=== PATIENT | female | born 1995 | race Caucasian/White ===

== ENCOUNTER 2020-04-07 05:27 | Inpatient (IN) | payer SELFPAY ==
[2020-04-07] VITALS (7 sets, daily range): BP systolic 105–124; BP diastolic 45–67; PULSE 78–91; RESP 16–18; TEMP 35.9–37.1; O2SAT 98–99; BMI 23.6
--- NOTE | 2020-04-07 05:40 | ED.ABDPAIN ---
HPI - Abdominal Pain General Chief Complaint: Abdominal Pain Stated Complaint: LOWER ABD PAIN Time Seen by Provider: 04/07/20 05:40 Source: patient Mode of arrival: ambulatory Limitations: no limitations History of Present Illness MD elicited complaint: abdominal pain Pertinent past history: other (seen at [facility] yesterday and prescribed flagyl for BV, seen for pelvic pain and vaginal bleeding) Onset (ago): day(s) (2 ) Pain Consistency: other (worsening) Location: RUQ, R flank, suprapubic and pelvis Severity: moderate Quality: cramping and stabbing Radiation: none Migration to: no migration Exacerbating factors: movement Relieving factors: nothing Context: recent antibiotic use (flagyl) Associated symptoms: nausea, vomiting and other (vaginal bleeding x 2 weeks) Related Data Allergies Allergy/AdvReac Type Severity Reaction Status Date / Time No Known Allergies Allergy Verified 04/07/20 05:44 Review of Systems Review of Systems Constitutional : No Weight loss, No Fever, No Chills ENT/Mouth : No sore throat, No Rhinorrhea Eyes: No Swelling, No Redness Cardiovascular : No Chest Pain, No SOB, NoEdema Respiratory : No Cough, No Sputum, No Wheezing Gastrointestinal : Positive Nausea, Positive Vomiting, no Diarrhea, positive abdominal Pain, No Hematochezia, No Melena Genitourinary : No Dysuria, No Urinary Frequency, No Hematuria, No Urgency , pos vaginal bleeding Musculoskeletal : No joint pain, No Myalgias, No Joint Swelling Skin : No Skin Lesions, No rash Neuro : No Weakness, No Numbness, No Dizziness, No Headache Psych : No Anxiety/Panic, No Depression Heme/Lymph: No Bruising, No Lymphadenopathy Endocrine : No Polyuria, No Polydipsia All other systems reviewed and are negative. Physical Exam Vital Signs: Vital Signs: Vital Signs Temp Pulse Resp BP Pulse Ox 04/07/20 05:45 98.3 F 91 18 114/67 98 Body Mass Index 23.6 Appearance: Alert. Oriented X3. Anxious, mild acute distress. Eyes: Pupils equal, round and reactive to light. ENT: Pharynx normal. Neck: Normal inspection. Neck supple. CVS: Normal heart rate and rhythm. Pulses normal. Respiratory: No respiratory distress. Breath sounds normal. Abdomen: Soft and R flank and R rib ttp Skin: Skin warm and dry. Normal skin color. Normal skin turgor. Extremities: No lower extremity edema. No calf ttp Neuro: Oriented X 3. No motor deficit. No sensory deficit. Course Course Course Narrative: signed out to Dr. Kruger pending labs, CT scan MDM - Abdominal Pain MDM Narrative Medical decision making narrative: 24 yo female with hx of pelvic pain and bleeding x 2 weeks being treated for BV but reports n/v and R flank and RUQ pain worsening also c/o R rib pain, PERC negative, at this time will need labs, CXR, CT scan for renal colic, IVF and IV morphine for pain, dispo per results and findings Lab Data Result diagrams: 04/07/20 06:00 04/07/20 06:00 Labs: Lab Results 04/07/20 04/07/20 04/07/20 Range/Units 06:00 06:00 06:00 WBC 15.0 H (4.8-10.8) X10*3/uL RBC 4.50 (4.20-5.50) X10*6/uL Hgb 14.1 (12.0-16.0) g/dl Hct 41.9 (37-47) % MCV 93.1 (80-98) fL MCH 31.3 (27.0-33.0) pg MCHC 33.7 (31.0-35.0) g/dl RDW 12.4 (11.0-16.0) % Plt Count 252 (160-400) X10*3/uL MPV 8.5 L (9.4-12.3) fL Immature Gran % (Auto) 0.4 (0.0-0.4) % Neut % (Auto) 73.0 (45-73) % Lymph % (Auto) 12.7 L (20-40) % [place] % (Auto) 6.3 (2-11) % Eos % (Auto) 7.1 H (0-4) % Baso % (Auto) 0.5 (0-2) % Lymph # (Auto) 1.9 (1.2-4.9) X10*3/uL [place] # (Auto) 0.9 (0.1-1.2) X10*3/uL Eos # (Auto) 1.1 H (0.0-0.4) X10*3/uL Baso # (Auto) 0.1 (0.0-0.2) X10*3/uL Abs Immat Gran (auto) 0.06 H (0.00-0.03) X10*3/uL Absolute Neuts (auto) 10.9 H (2.0-8.3) X10*3/uL Absolute Nucleated RBC 0.000 (0.0-0.012) X10*3/uL Nucleated RBC % (auto) 0.0 (0.0-0.2) /100WBC Hold Blue Top SEE NOTE Sodium 139 (135-145) mmol/L Potassium 4.1 (3.3-5.1) mmol/l Chloride 105 (96-108) mmol/L Carbon Dioxide 26 (22-29) mmol/L Anion Gap 12 (12-20) BUN 7 L (9-16) mg/dL Creatinine 0.71 (0.5-1.4) mg/dL Estim Creat Clear Calc 107.3 Estimated GFR > 60 Random Glucose 88 (60-115) mg/dL Calcium 8.5 (8.4-10.2) mg/dL Urine Color Urine Appearance Urine pH (5.0-8.0) Ur Specific [place] (1.005-1.025) Urine Protein (NEG-TRACE) MG/DL Urine Glucose (UA) (NEG) MG/DL Urine Ketones (NEG) MG/DL Urine Blood (NEG) Urine Nitrite (NEG) Ur Leukocyte Esterase (NEG) Urine RBC (0) /HPF Urine WBC (0-4) /HPF Ur Squamous Epith Cells /LPF Urine Bacteria /LPF Urine Mucus /LPF Urine Yeast /HPF Urine Test (NEGATIVE) 04/07/20 Range/Units 06:00 WBC (4.8-10.8) X10*3/uL RBC (4.20-5.50) X10*6/uL Hgb (12.0-16.0) g/dl Hct (37-47) % MCV (80-98) fL MCH (27.0-33.0) pg MCHC (31.0-35.0) g/dl RDW (11.0-16.0) % Plt Count (160-400) X10*3/uL MPV (9.4-12.3) fL Immature Gran % (Auto) (0.0-0.4) % Neut % (Auto) (45-73) % Lymph % (Auto) (20-40) % [place] % (Auto) (2-11) % Eos % (Auto) (0-4) % Baso % (Auto) (0-2) % Lymph # (Auto) (1.2-4.9) X10*3/uL [place] # (Auto) (0.1-1.2) X10*3/uL Eos # (Auto) (0.0-0.4) X10*3/uL Baso # (Auto) (0.0-0.2) X10*3/uL Abs Immat Gran (auto) (0.00-0.03) X10*3/uL Absolute Neuts (auto) (2.0-8.3) X10*3/uL Absolute Nucleated RBC (0.0-0.012) X10*3/uL Nucleated RBC % (auto) (0.0-0.2) /100WBC Hold Blue Top Sodium (135-145) mmol/L Potassium (3.3-5.1) mmol/l Chloride (96-108) mmol/L Carbon Dioxide (22-29) mmol/L Anion Gap (12-20) BUN (9-16) mg/dL Creatinine (0.5-1.4) mg/dL Estim Creat Clear Calc Estimated GFR Random Glucose (60-115) mg/dL Calcium (8.4-10.2) mg/dL Urine Color YELLOW Urine Appearance CLEAR Urine pH 7.0 (5.0-8.0) Ur Specific [place] 1.020 (1.005-1.025) Urine Protein NEG (NEG-TRACE) MG/DL Urine Glucose (UA) NEG (NEG) MG/DL Urine Ketones NEG (NEG) MG/DL Urine Blood 2+ H (NEG) Urine Nitrite NEG (NEG) Ur Leukocyte Esterase NEG (NEG) Urine RBC 5-9 H (0) /HPF Urine WBC 0 (0-4) /HPF Ur Squamous Epith Cells 1+ /LPF Urine Bacteria NONE /LPF Urine Mucus TRACE /LPF Urine Yeast TRACE /HPF Urine Test NEGATIVE (NEGATIVE) Discharge Plan Discharge Clinical Impression: Abdominal pain PMFSH Past Medical History Attestation statement: The following information was validated with the patient. Medical History No known health problems Social History Social History (Updated 04/07/20 @ 05:58 by Gayla Ortez DO) Smoking Status: Current every day smoker Substance Use Type: Former Substance User Advance Directives: No Advance Directives Information Provided: No
--- NOTE | 2020-04-07 05:50 | CT_ITS ---
EXAMINATION: CT ABDOMEN AND PELVIS WITH CONTRAST CLINICAL INFORMATION: Right-sided abdominal pain. COMPARISON: None TECHNIQUE: Multidetector volumetric images were obtained from the superior aspect of the liver through the pubic symphysis following administration 85 mL ofOmnipaque 350 intravenous contrast. Sagittal and coronal reformatted images were obtained on the technologist's workstation. Oral contrast: No This CT examination was performed using dose optimization techniques as appropriate, variously including the following: *Automated exposure control *Adjustment of mA and/or kV according to patient size (this includes techniques or standardized protocols for targeted exams where dose is matched to indication/reason for exam; i.e. extremities or head) *Use of iterative reconstruction technique DLP: 471.36 mGy-cm FINDINGS: LUNG BASES: Solitary sub-5 mm round-shaped subpleural noncalcified lung nodule is noted within the right lower lobe anterolaterally (image #61 series 4). LIVER, GALLBLADDER, AND BILIARY TREE: The liver is normal in size, shape, and attenuation. No focal hepatic lesion or biliary ductal dilatation is present. The gallbladder is unremarkable with no evidence of radiopaque gallstones, gallbladder wall thickening, or obvious pericholecystic inflammatory changes. PANCREAS: Unremarkable. SPLEEN: Unremarkable. ADRENAL GLANDS: Unremarkable. KIDNEYS AND URETERS: The kidneys are normal in size, shape, and attenuation. No hydronephrosis, hydroureter, or calculi seen. No perinephric stranding. BLADDER: Unremarkable. GASTROINTESTINAL TRACT: The small and large bowel are unremarkable. The appendix is visualized at right lower quadrant of the abdomen, appear normal in caliber. However, subtle periappendiceal stranding is present. Note is also made of an ellipsoidal hypodense fluid containing structure seen abutting the tip of the appendix (image #93 series #6 and image #52 series 5, and image #521 series 4), measures approximately 3.2 x 2.0 cm at its maximum anteroposterior by transverse dimension, within the superior part of the right hemipelvis superior, posterior and lateral aspect of the body of the uterus (see the marie images). Given its location, the findings may represent pelvic inflammatory disease with tube ovarian abscess and reactive changes in the appendix. ABDOMINAL WALL: No significant hernia is appreciated. LYMPH NODES: Normal. VASCULAR: Unremarkable. PELVIC VISCERA: Bilateral adnexal hypodensities are present. May represent enlarged ovaries containing follicles. Note is also made of a fluid containing structure within the right hemipelvis as already described, may represent changes secondary to pelvic inflammatory disease. Alternatively, may also represent fluid containing small bowel loop. No evidence of any free air or free fluid. Hypodense endometrial, may represent presence of endometrial fluid. OSSEOUS STRUCTURES: Likely bone island within the left supra-acetabular region. CT/CT abdomen pelvis w con IMPRESSION: 1. Solitary sub-5 mm subpleural noncalcified lung nodule is noted within the right lower lobe anterolaterally. 2. The appendix is visualized at right lower quadrant, appear normal in caliber, without evidence of any appendicolith. However, subtle periappendiceal inflammatory stranding is present.. The tip of the appendix, there is a 3.2 x 2.0 cm fluid containing structure identified extending into the right hemipelvis along along the right lateral, posterior superior aspect of the body of the uterus. Bilateral adnexal hypodensities are also noted. The findings may represent changes secondary to pelvic inflammatory disease with tubo-ovarian abscess and reactive changes around the appendix. Alternatively, the fluid containing structure may also represent fluid containing small bowel loop. 3. Note is made of hypodensity within the endometrium, may represent nonspecific endometrial fluid. This critical result was discussed with Dr. Kruger at 7:43 AM on 04/07/2020 and it was ascertained that the content and urgency of the report was understood at the time of direct communication. Discussion was made regarding the need for a follow-up pelvic ultrasound and for possible follow-up CT scan following opacification of the small bowel loops with oral contrast if the ultrasound is not conclusive.
--- NOTE | 2020-04-07 05:51 | XR_ITS ---
EXAMINATION: XR CHEST CLINICAL INFORMATION: Right-sided pain COMPARISON: None TECHNIQUE: Frontal view of the chest was obtained. FINDINGS: The lungs are well expanded. There is no focal consolidation, edema, or effusion. No pneumothorax. The cardiomediastinal silhouette is within normal limits. No acute osseous abnormality. XR/XR chest 1V IMPRESSION: Clear lungs.
[2020-04-07 06:08] LABS: Basophils Absolute Auto 0.1 X10*3/uL (0.0-0.2); Basophils Percent Auto 0.5 % (0-2); Eosinophils Absolute Auto 1.1 X10*3/uL (0.0-0.4); Eosinophils Percent Auto 7.1 % (0-4); Hematocrit 41.9 % (37-47); Hemoglobin 14.1 g/dl (12.0-16.0); Imm Gran Abs Auto 0.06 X10*3/uL (0.00-0.03); Imm Gran Pct Auto 0.4 % (0.0-0.4); Lymphocytes Absolute Auto 1.9 X10*3/uL (1.2-4.9); Lymphocytes Percent Auto 12.7 % (20-40); MANUAL DIFF FLAG NO; Mean Corpuscular HGB Conc 33.7 g/dl (31.0-35.0); Mean Corpuscular Hemoglobin 31.3 pg (27.0-33.0); Mean Corpuscular Volume 93.1 fL (80-98); Mean Platelet Volume 8.5 fL (9.4-12.3); Monocytes Absolute Auto 0.9 X10*3/uL (0.1-1.2); Monocytes Percent Auto 6.3 % (2-11); Neutrophils Absolute Auto 10.9 X10*3/uL (2.0-8.3); Platelet Count 252 X10*3/uL (160-400); Red Cell Distribution Width 12.4 % (11.0-16.0)
[2020-04-07] MEDS: 0.9 % Sodium Chloride 1,000 ML 999 ML IVCONT (06:12)
[2020-04-07] MEDS: Morphine Sulfate 4 MG/ML CARTRIDGE IVPUSH (06:12)
[2020-04-07] MEDS: ondansetron HCL 4 MG/2 ML VIAL IVPUSH (06:12)
[2020-04-07 06:18] LABS: Glucose Urine UA NEG (NEG); Leukocyte Esterase Urine NEG (NEG); Nitrite Urine NEG (NEG); Urine Blood 2+ (NEG); Urine Ketones NEG (NEG); Urine Protein NEG (NEG-TRACE)
[2020-04-07 06:23] LABS: Appearance Urine CLEAR; Color Urine YELLOW
[2020-04-07 06:38] LABS: Mucus Urine TRACE /LPF; Squamous Epithelial Cell Urine 1+ /LPF; WBC Urine 0 /HPF (0-4)
[2020-04-07 06:39] LABS: UPreg QC Valid YES; Urine Pregnancy NEGATIVE (NEGATIVE)
[2020-04-07 06:43] LABS: Anion Gap 12 (12-20); Blood Urea Nitrogen 7 mg/dL (9-16); Calcium 8.5 mg/dL (8.4-10.2); Carbon Dioxide 26 mmol/L (22-29); Chloride 105 mmol/L (96-108); Creatinine Clr Calc Pharmacy 107.3; Estimated Glomerular Filt Rate > 60; Glucose Random 88 mg/dL (60-115); Potassium 4.1 mmol/l (3.3-5.1); Sodium 139 mmol/L (135-145)
[2020-04-07 06:49] LABS: Alanine Aminotransferase 17 U/L (0-31); Albumin Level 3.6 g/dL (3.5-5.0); Alkaline Phosphatase 75 U/L (39-117); Aspartate Amino Transferase 19 U/L (5-31); Bilirubin Direct 0.2 mg/dL (0.0-0.5); Bilirubin Total 0.6 mg/dL (0.0-1.0); Lipase 35 U/L (8-78)
--- NOTE | 2020-04-07 07:16 | PC.NURSE ---
report taken from Conchis HERMOSILLO. pt resting on stretcher upon assessment. states pain med has taken away RLQ pain. vitals updated. pt taken for CT scan. waiting results.
[2020-04-07] MEDS: iohexoL 350 MG/ML 100 ML INFUS..BTL IV (07:26)
--- NOTE | 2020-04-07 07:53 | US_ITS ---
EXAMINATION: ULTRASOUND PELVIS COMPLETE. ULTRASOUND APPENDIX. CLINICAL INFORMATION: Right abdominal and pelvic pain. COMPARISON: None TECHNIQUE: Limited imaging through the right lower quadrant was performed to evaluate the appendix. Transabdominal and transvaginal ultrasound of the pelvis is performed. FINDINGS: APPENDIX: The appendix is not visualized. There is no mass or free fluid visualized in the right lower quadrant or Morison's pouch. Recent CT revealed normal appendix. PELVIS: The uterus is anteverted and measures 8.9 cm in length length, 4.6 cm in AP and 5.0 cm in transverse dimension. The uterus is homogeneous in echotexture. The endometrial thickness measures 1.2 cm. The right ovary measures 3.5 x 1.9 x 2.2 cm and volume 7.7 mL. It appears unremarkable. Left ovary measures 3.6 x 2.8 x 2.0 cm and volume 15.8 mL. There is a corpus luteal cyst 2.3 x 1.8 x 2.8 cm. There is no free fluid in the cul-de-sac. US/US pelvic complete IMPRESSION: Appendix is not visualized. No mass or free fluid is seen in the right lower quadrant. There is no tenderness by ultrasound probe. Corpus luteal cyst measuring 2.8 cm in the left ovary. Unremarkable right ovary and uterus.
--- NOTE | 2020-04-07 07:53 | US_ITS ---
EXAMINATION: ULTRASOUND PELVIS COMPLETE. ULTRASOUND APPENDIX. CLINICAL INFORMATION: Right abdominal and pelvic pain. COMPARISON: None TECHNIQUE: Limited imaging through the right lower quadrant was performed to evaluate the appendix. Transabdominal and transvaginal ultrasound of the pelvis is performed. FINDINGS: APPENDIX: The appendix is not visualized. There is no mass or free fluid visualized in the right lower quadrant or Morison's pouch. Recent CT revealed normal appendix. PELVIS: The uterus is anteverted and measures 8.9 cm in length length, 4.6 cm in AP and 5.0 cm in transverse dimension. The uterus is homogeneous in echotexture. The endometrial thickness measures 1.2 cm. The right ovary measures 3.5 x 1.9 x 2.2 cm and volume 7.7 mL. It appears unremarkable. Left ovary measures 3.6 x 2.8 x 2.0 cm and volume 15.8 mL. There is a corpus luteal cyst 2.3 x 1.8 x 2.8 cm. There is no free fluid in the cul-de-sac. US/US appendix IMPRESSION: Appendix is not visualized. No mass or free fluid is seen in the right lower quadrant. There is no tenderness by ultrasound probe. Corpus luteal cyst measuring 2.8 cm in the left ovary. Unremarkable right ovary and uterus.
--- NOTE | 2020-04-07 08:05 | ED.ABDPAIN ---
HPI - Abdominal Pain General Chief Complaint: Abdominal Pain Stated Complaint: LOWER ABD PAIN Time Seen by Provider: 04/07/20 05:40 Source: patient Mode of arrival: ambulatory Limitations: no limitations History of Present Illness HPI narrative: please see Dr. Ortez's note for initial assessment and H&P MD elicited complaint: abdominal pain Severity: moderate Quality: cramping and stabbing Migration to: no migration Exacerbating factors: movement Relieving factors: nothing Context: recent antibiotic use (flagyl) Associated symptoms: nausea, vomiting and other (vaginal bleeding x 2 weeks) Related Data Allergies Allergy/AdvReac Type Severity Reaction Status Date / Time No Known Allergies Allergy Verified 04/07/20 05:44 Physical Exam Vital Signs: Vital Signs: Vital Signs Temp Pulse Resp BP Pulse Ox 04/07/20 14:08 98.2 F 79 18 105/45 L 98 04/07/20 10:15 98.7 F 89 18 117/67 99 04/07/20 06:53 98.1 F 84 16 106/54 L 99 04/07/20 05:45 98.3 F 91 18 114/67 98 Body Mass Index 23.6 Course Course Course Narrative: I received sign-out from Dr. Ortez. I spoke to Dr. Caraballo from [facility], Is unlikely that the patient has appendicitis, however he cannot be ruled out completely. Patient may have a 2 ovarian abscess versus appendicitis. The next step is to follow-up with an ultrasound at this time. I discussed the above-mentioned with the patient, agrees to plan. Patient states she cannot wait for the ultrasound results, states she needs to go to her appointment for a COVID test. states she really needs it to return to work. I offered the patient out rapid COVID test here, while we wait for her ultrasound results to return. Patient accepted to be tested here for COVID-19 Dr. Roe came to evaluate the patient, at this time, it remains unclear if the patient's abdominal pain is secondary to appendicitis versus to ovarian abscess. Dr. Roe requesting surgery consult as well which is pending. Dr. Roe will be admitting the patient. Dr. Eduardo from surgery came to evaluate the patient, at this time, appendicitis is not suspected. MDM - Abdominal Pain Lab Data Result diagrams: 04/07/20 06:00 04/07/20 06:00 Labs: Lab Results 04/07/20 04/07/20 04/07/20 Range/Units 06:00 06:00 06:00 WBC 15.0 H (4.8-10.8) X10*3/uL RBC 4.50 (4.20-5.50) X10*6/uL Hgb 14.1 (12.0-16.0) g/dl Hct 41.9 (37-47) % MCV 93.1 (80-98) fL MCH 31.3 (27.0-33.0) pg MCHC 33.7 (31.0-35.0) g/dl RDW 12.4 (11.0-16.0) % Plt Count 252 (160-400) X10*3/uL MPV 8.5 L (9.4-12.3) fL Immature Gran % (Auto) 0.4 (0.0-0.4) % Neut % (Auto) 73.0 (45-73) % Lymph % (Auto) 12.7 L (20-40) % [place] % (Auto) 6.3 (2-11) % Eos % (Auto) 7.1 H (0-4) % Baso % (Auto) 0.5 (0-2) % Lymph # (Auto) 1.9 (1.2-4.9) X10*3/uL [place] # (Auto) 0.9 (0.1-1.2) X10*3/uL Eos # (Auto) 1.1 H (0.0-0.4) X10*3/uL Baso # (Auto) 0.1 (0.0-0.2) X10*3/uL Abs Immat Gran (auto) 0.06 H (0.00-0.03) X10*3/uL Absolute Neuts (auto) 10.9 H (2.0-8.3) X10*3/uL Absolute Nucleated RBC 0.000 (0.0-0.012) X10*3/uL Nucleated RBC % (auto) 0.0 (0.0-0.2) /100WBC Hold Blue Top SEE NOTE Sodium 139 (135-145) mmol/L Potassium 4.1 (3.3-5.1) mmol/l Chloride 105 (96-108) mmol/L Carbon Dioxide 26 (22-29) mmol/L Anion Gap 12 (12-20) BUN 7 L (9-16) mg/dL Creatinine 0.71 (0.5-1.4) mg/dL Estim Creat Clear Calc 107.3 Estimated GFR > 60 Random Glucose 88 (60-115) mg/dL Calcium 8.5 (8.4-10.2) mg/dL Magnesium (1.6-2.6) mg/dL Total Bilirubin (0.0-1.0) mg/dL Direct Bilirubin (0.0-0.5) mg/dL AST (5-31) U/L ALT (0-31) U/L Alkaline Phosphatase (39-117) U/L Total Protein (6.5-8.0) g/dL Albumin (3.5-5.0) g/dL Lipase (8-78) U/L Urine Color Urine Appearance Urine pH (5.0-8.0) Ur Specific [place] (1.005-1.025) Urine Protein (NEG-TRACE) MG/DL Urine Glucose (UA) (NEG) MG/DL Urine Ketones (NEG) MG/DL Urine Blood (NEG) Urine Nitrite (NEG) Ur Leukocyte Esterase (NEG) Urine RBC (0) /HPF Urine WBC (0-4) /HPF Ur Squamous Epith Cells /LPF Urine Bacteria /LPF Urine Mucus /LPF Urine Yeast /HPF Urine Test (NEGATIVE) Coronavirus (PCR) (Negative) 04/07/20 04/07/20 04/07/20 Range/Units 06:00 06:00 12:04 WBC (4.8-10.8) X10*3/uL RBC (4.20-5.50) X10*6/uL Hgb (12.0-16.0) g/dl Hct (37-47) % MCV (80-98) fL MCH (27.0-33.0) pg MCHC (31.0-35.0) g/dl RDW (11.0-16.0) % Plt Count (160-400) X10*3/uL MPV (9.4-12.3) fL Immature Gran % (Auto) (0.0-0.4) % Neut % (Auto) (45-73) % Lymph % (Auto) (20-40) % [place] % (Auto) (2-11) % Eos % (Auto) (0-4) % Baso % (Auto) (0-2) % Lymph # (Auto) (1.2-4.9) X10*3/uL [place] # (Auto) (0.1-1.2) X10*3/uL Eos # (Auto) (0.0-0.4) X10*3/uL Baso # (Auto) (0.0-0.2) X10*3/uL Abs Immat Gran (auto) (0.00-0.03) X10*3/uL Absolute Neuts (auto) (2.0-8.3) X10*3/uL Absolute Nucleated RBC (0.0-0.012) X10*3/uL Nucleated RBC % (auto) (0.0-0.2) /100WBC Hold Blue Top Sodium (135-145) mmol/L Potassium (3.3-5.1) mmol/l Chloride (96-108) mmol/L Carbon Dioxide (22-29) mmol/L Anion Gap (12-20) BUN (9-16) mg/dL Creatinine (0.5-1.4) mg/dL Estim Creat Clear Calc Estimated GFR Random Glucose (60-115) mg/dL Calcium (8.4-10.2) mg/dL Magnesium 2.0 (1.6-2.6) mg/dL Total Bilirubin 0.6 (0.0-1.0) mg/dL Direct Bilirubin 0.2 (0.0-0.5) mg/dL AST 19 (5-31) U/L ALT 17 (0-31) U/L Alkaline Phosphatase 75 (39-117) U/L Total Protein 6.0 L (6.5-8.0) g/dL Albumin 3.6 (3.5-5.0) g/dL Lipase 35 (8-78) U/L Urine Color YELLOW Urine Appearance CLEAR Urine pH 7.0 (5.0-8.0) Ur Specific [place] 1.020 (1.005-1.025) Urine Protein NEG (NEG-TRACE) MG/DL Urine Glucose (UA) NEG (NEG) MG/DL Urine Ketones NEG (NEG) MG/DL Urine Blood 2+ H (NEG) Urine Nitrite NEG (NEG) Ur Leukocyte Esterase NEG (NEG) Urine RBC 5-9 H (0) /HPF Urine WBC 0 (0-4) /HPF Ur Squamous Epith Cells 1+ /LPF Urine Bacteria NONE /LPF Urine Mucus TRACE /LPF Urine Yeast TRACE /HPF Urine Test NEGATIVE (NEGATIVE) Coronavirus (PCR) NEGATIVE (Negative) Imaging Data CT scan - abdomen: Radiologist's impression: 1. Solitary sub-5 mm subpleural noncalcified lung nodule is noted within the right lower lobe anterolaterally. 2. The appendix is visualized at right lower quadrant, appear normal in caliber, without evidence of any appendicolith. However, subtle periappendiceal inflammatory stranding is present.. The tip of the appendix, there is a 3.2 x 2.0 cm fluid containing structure identified extending into the right hemipelvis along along the right lateral, posterior superior aspect of the body of the uterus. Bilateral adnexal hypodensities are also noted. The findings may represent changes secondary to pelvic inflammatory disease with tubo-ovarian abscess and reactive changes around the appendix. Alternatively, the fluid containing structure may also represent fluid containing small bowel loop. 3. Note is made of hypodensity within the endometrium, may represent nonspecific endometrial fluid. Discharge Plan Discharge Clinical Impression: TOA (tubo-ovarian abscess) Patient Disposition: Admitted As [facility] Past Medical History Medical History No known health problems Social History Social History Smoking Status: Current every day smoker Use of substances other than those prescribed or required for medical reasons: No Substance Use Type: Former Substance User Advance Directives: No Advance Directives Information Provided: No
--- NOTE | 2020-04-07 08:12 | US_ITS ---
EXAMINATION: ULTRASOUND PELVIS COMPLETE. ULTRASOUND APPENDIX. CLINICAL INFORMATION: Right abdominal and pelvic pain. COMPARISON: None TECHNIQUE: Limited imaging through the right lower quadrant was performed to evaluate the appendix. Transabdominal and transvaginal ultrasound of the pelvis is performed. FINDINGS: APPENDIX: The appendix is not visualized. There is no mass or free fluid visualized in the right lower quadrant or Morison's pouch. Recent CT revealed normal appendix. PELVIS: The uterus is anteverted and measures 8.9 cm in length length, 4.6 cm in AP and 5.0 cm in transverse dimension. The uterus is homogeneous in echotexture. The endometrial thickness measures 1.2 cm. The right ovary measures 3.5 x 1.9 x 2.2 cm and volume 7.7 mL. It appears unremarkable. Left ovary measures 3.6 x 2.8 x 2.0 cm and volume 15.8 mL. There is a corpus luteal cyst 2.3 x 1.8 x 2.8 cm. There is no free fluid in the cul-de-sac. US/US transvaginal IMPRESSION: Appendix is not visualized. No mass or free fluid is seen in the right lower quadrant. There is no tenderness by ultrasound probe. Corpus luteal cyst measuring 2.8 cm in the left ovary. Unremarkable right ovary and uterus.
[2020-04-07] MEDS: Ketorolac Tromethamine 30 MG/ML VIAL IVPUSH ×2 (10:27→20:22)
[2020-04-07] MEDS: Piperacillin Sodium/Tazobactam 3.375 GM in 0.9 % Sodium Chloride 50 ML IV (11:51)
--- NOTE | 2020-04-07 12:31 | PC.NURSE ---
md in and spoke with pt, advised pt that she would need pelvic exam. pt appeared frustrated as she had one yesterday, pt given option to not have exam but stated no I need to know whats wrong with me and was agreeabl to have exam done by . and this rn at bedside for exam. pt crying during exam and after. offered to patient if there was anything this RN could do for her after exam, pt crying and replied No .
[2020-04-07 13:11] LABS: SARS COV2 PCR INHOUSE NEGATIVE (Negative)
--- NOTE | 2020-04-07 14:24 | ED_ITS ---
HPI - Abdominal Pain General Chief Complaint: Abdominal Pain Stated Complaint: LOWER ABD PAIN Time Seen by Provider: 04/07/20 05:40 Source: patient Mode of arrival: ambulatory Limitations: no limitations History of Present Illness HPI narrative: The patient the presented emergency room early this morning complaining of the lower abdominal pain more on the right radiating to the right upper quadrant. Patient has been having pain last 3 days, She went yesterday to emergency room at [facility], was diagnosed with bacterial vaginosis and was prescribed metronidazole. But the patient woke up this morning with exacerbation of her right lower quadrant pain radiating to the right upper quadrant. so she the decided to come in for evaluation. The pain is associated with nausea, vomiting, vaginal bleeding and discharge, no fever or chills. The patient has been having her menses over the last 2 weeks and she unprotected intercourse. MD elicited complaint: abdominal pain Severity: moderate Quality: cramping and stabbing Migration to: no migration Exacerbating factors: movement Relieving factors: nothing Context: recent antibiotic use (flagyl) Associated symptoms: nausea, vomiting and other (vaginal bleeding x 2 weeks) Related Data Patient : No Allergies Allergy/AdvReac Type Severity Reaction Status Date / Time No Known Allergies Allergy Verified 04/07/20 05:44 Review of Systems Review of Systems Yes all other systems are reviewed and are negative Cardiovascular: Reports as per HPI, Reports no additional cardiovascular complaints, Denies chest pain, Denies chest pain with activity, Denies dyspnea and Denies dyspnea on exertion Respiratory: Reports as per HPI, Reports no additional respiratory complaints, Denies cough, Denies pain on inspiration, Denies pain with cough, Denies dyspnea, Denies dyspnea on exertion and Denies wheezing Gastrointestinal: Reports as per HPI, Reports no additional gastrointestinal complaints, Denies abdominal pain, Denies change in bowel habits, Denies change in stool character, Denies early satiety, Denies dyspepsia, Denies heartburn, Denies nausea and Denies vomiting Genitourinary: Reports as per HPI, Denies hematuria and Denies dysuria Allergic/Immunologic: Denies wheezing Physical Exam Vital Signs: Vital Signs: Vital Signs Temp Pulse Resp BP Pulse Ox 04/07/20 14:08 98.2 F 79 18 105/45 L 98 04/07/20 10:15 98.7 F 89 18 117/67 99 04/07/20 06:53 98.1 F 84 16 106/54 L 99 04/07/20 05:45 98.3 F 91 18 114/67 98 Body Mass Index 23.6 Const: General: cooperative, healthy appearing and comfortable Chest: Chest palpation & inspection: normal inspection of the chest and normal palpation of entire chest wall Breast/axilla inspection: normal inspection of the breasts and normal inspection of the axillae Breast/axilla palpation: normal palpation of the breasts, normal palpation of the axillae and no axillary lymphadenopathy Resp: Effort & Inspection: normal respiratory effort Auscultation: clear to auscultation bilaterally Percussion: percussion normal Cardio: Palpation: normal PMI Rate: regular rate Rhythm: regular rhythm Heart sounds: no murmurs and no rubs Peripheral pulses: Peripheral pulses 2+ throughout GI: Inspection: Yes normal to inspection Palpation (GI): Soft to palpation, Tenderness to palpation present (GI), no guarding, not rigid and No hepatosplenomegaly present Percussion: Yes normal to percussion Auscultation: normal bowel sounds Rectal Exam - Female: deferred : Other: The patient declined pelvic exam stating that she just had a pelvic exam by the emergency room physician. Explained to the patient the importance of a pelvic exam as part of evaluation especially in a setting of TOA the patient still insisted not having the pelvic exam after verbalizing understand. All questions answered. Speculum Exam - Vagina: erythematous MDM - Abdominal Pain Lab Data Result diagrams: 04/07/20 06:00 04/07/20 06:00 Labs: Lab Results 04/07/20 04/07/20 04/07/20 Range/Units 06:00 06:00 06:00 WBC 15.0 H (4.8-10.8) X10*3/uL RBC 4.50 (4.20-5.50) X10*6/uL Hgb 14.1 (12.0-16.0) g/dl Hct 41.9 (37-47) % MCV 93.1 (80-98) fL MCH 31.3 (27.0-33.0) pg MCHC 33.7 (31.0-35.0) g/dl RDW 12.4 (11.0-16.0) % Plt Count 252 (160-400) X10*3/uL MPV 8.5 L (9.4-12.3) fL Immature Gran % (Auto) 0.4 (0.0-0.4) % Neut % (Auto) 73.0 (45-73) % Lymph % (Auto) 12.7 L (20-40) % [place] % (Auto) 6.3 (2-11) % Eos % (Auto) 7.1 H (0-4) % Baso % (Auto) 0.5 (0-2) % Lymph # (Auto) 1.9 (1.2-4.9) X10*3/uL [place] # (Auto) 0.9 (0.1-1.2) X10*3/uL Eos # (Auto) 1.1 H (0.0-0.4) X10*3/uL Baso # (Auto) 0.1 (0.0-0.2) X10*3/uL Abs Immat Gran (auto) 0.06 H (0.00-0.03) X10*3/uL Absolute Neuts (auto) 10.9 H (2.0-8.3) X10*3/uL Absolute Nucleated RBC 0.000 (0.0-0.012) X10*3/uL Nucleated RBC % (auto) 0.0 (0.0-0.2) /100WBC Hold Blue Top SEE NOTE Sodium 139 (135-145) mmol/L Potassium 4.1 (3.3-5.1) mmol/l Chloride 105 (96-108) mmol/L Carbon Dioxide 26 (22-29) mmol/L Anion Gap 12 (12-20) BUN 7 L (9-16) mg/dL Creatinine 0.71 (0.5-1.4) mg/dL Estim Creat Clear Calc 107.3 Estimated GFR > 60 Random Glucose 88 (60-115) mg/dL Calcium 8.5 (8.4-10.2) mg/dL Magnesium (1.6-2.6) mg/dL Total Bilirubin (0.0-1.0) mg/dL Direct Bilirubin (0.0-0.5) mg/dL AST (5-31) U/L ALT (0-31) U/L Alkaline Phosphatase (39-117) U/L Total Protein (6.5-8.0) g/dL Albumin (3.5-5.0) g/dL Lipase (8-78) U/L Urine Color Urine Appearance Urine pH (5.0-8.0) Ur Specific [place] (1.005-1.025) Urine Protein (NEG-TRACE) MG/DL Urine Glucose (UA) (NEG) MG/DL Urine Ketones (NEG) MG/DL Urine Blood (NEG) Urine Nitrite (NEG) Ur Leukocyte Esterase (NEG) Urine RBC (0) /HPF Urine WBC (0-4) /HPF Ur Squamous Epith Cells /LPF Urine Bacteria /LPF Urine Mucus /LPF Urine Yeast /HPF Urine Test (NEGATIVE) Coronavirus (PCR) (Negative) 04/07/20 04/07/20 04/07/20 Range/Units 06:00 06:00 12:04 WBC (4.8-10.8) X10*3/uL RBC (4.20-5.50) X10*6/uL Hgb (12.0-16.0) g/dl Hct (37-47) % MCV (80-98) fL MCH (27.0-33.0) pg MCHC (31.0-35.0) g/dl RDW (11.0-16.0) % Plt Count (160-400) X10*3/uL MPV (9.4-12.3) fL Immature Gran % (Auto) (0.0-0.4) % Neut % (Auto) (45-73) % Lymph % (Auto) (20-40) % [place] % (Auto) (2-11) % Eos % (Auto) (0-4) % Baso % (Auto) (0-2) % Lymph # (Auto) (1.2-4.9) X10*3/uL [place] # (Auto) (0.1-1.2) X10*3/uL Eos # (Auto) (0.0-0.4) X10*3/uL Baso # (Auto) (0.0-0.2) X10*3/uL Abs Immat Gran (auto) (0.00-0.03) X10*3/uL Absolute Neuts (auto) (2.0-8.3) X10*3/uL Absolute Nucleated RBC (0.0-0.012) X10*3/uL Nucleated RBC % (auto) (0.0-0.2) /100WBC Hold Blue Top Sodium (135-145) mmol/L Potassium (3.3-5.1) mmol/l Chloride (96-108) mmol/L Carbon Dioxide (22-29) mmol/L Anion Gap (12-20) BUN (9-16) mg/dL Creatinine (0.5-1.4) mg/dL Estim Creat Clear Calc Estimated GFR Random Glucose (60-115) mg/dL Calcium (8.4-10.2) mg/dL Magnesium 2.0 (1.6-2.6) mg/dL Total Bilirubin 0.6 (0.0-1.0) mg/dL Direct Bilirubin 0.2 (0.0-0.5) mg/dL AST 19 (5-31) U/L ALT 17 (0-31) U/L Alkaline Phosphatase 75 (39-117) U/L Total Protein 6.0 L (6.5-8.0) g/dL Albumin 3.6 (3.5-5.0) g/dL Lipase 35 (8-78) U/L Urine Color YELLOW Urine Appearance CLEAR Urine pH 7.0 (5.0-8.0) Ur Specific [place] 1.020 (1.005-1.025) Urine Protein NEG (NEG-TRACE) MG/DL Urine Glucose (UA) NEG (NEG) MG/DL Urine Ketones NEG (NEG) MG/DL Urine Blood 2+ H (NEG) Urine Nitrite NEG (NEG) Ur Leukocyte Esterase NEG (NEG) Urine RBC 5-9 H (0) /HPF Urine WBC 0 (0-4) /HPF Ur Squamous Epith Cells 1+ /LPF Urine Bacteria NONE /LPF Urine Mucus TRACE /LPF Urine Yeast TRACE /HPF Urine Test NEGATIVE (NEGATIVE) Coronavirus (PCR) NEGATIVE (Negative) Discharge Plan Discharge Clinical Impression: TOA (tubo-ovarian abscess) Patient Disposition: Admitted As Inpatient REPLACED BY [facility] Past Medical History Medical History No known health problems Social History Social History Smoking Status: Current every day smoker Use of substances other than those prescribed or required for medical reasons: No Substance Use Type: Former Substance User Advance Directives: No Advance Directives Information Provided: No
--- NOTE | 2020-04-07 14:49 | P.HPOB_ITS ---
RETAIL BUSINESS MANAGER - H&P: HPI History of Present Illness Narrative: LENIN ARRIAGA is a 24 year old female who presented to the emergency room early this morning complaining of the lower abdominal pain more on the right radiating to the right upper quadrant. Patient has been having pain last 3 days, She went yesterday to emergency room at [facility], was diagnosed with bacterial vaginosis and was prescribed metronidazole. But the patient woke up this morning with exacerbation of her right lower quadrant p ain radiating to the right upper quadrant. so she the decided to come in for evaluation. The pain is associated with nausea, vomiting, vaginal bleeding and discharge, no fever or chills. The patient has been having her menses over the last 2 weeks and she unprotected intercourse. 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 - Review of Systems Review of Systems ROS Unobtainable: All systems reviewed & are unremarkable except as noted in HPI and below OB PMFSH Past Medical History Medical History H/O: substance abuse No known health problems TOA (tubo-ovarian abscess) Social History Social History Household Members: None Housing: Apartment Alcohol intake: never Smoking Status: Current every day smoker Tobacco Type: E-Cigarette Use of substances other than those prescribed or required for medical reasons: Yes Substance Use Type: Marijuana Advance Directives: No Advance Directives Information Provided: No service: No Current occupational status: employed Sexual orientation: Straight/Heterosexual Gender identity: female Meds Allergies Allergy/AdvReac Type Severity Reaction Status Date / Time No Known Allergies Allergy Verified 07/08/20 19:44 RETAIL BUSINESS MANAGER Physical Exam Vitals Vital signs: Temp Pulse Resp BP Pulse Ox 98.2 F 79 18 105/45 L 98 04/07/20 14:08 04/07/20 14:08 04/07/20 14:08 04/07/20 14:08 04/07/20 14:08 Body Mass Index 23.6 Constitutional General Appearance: Well-nourished and Well-developed Psychiatric Mood and Affect: anxious Lungs Respiratory Effort: No intercostal retractions Auscultation: Clear to auscultation Cardiovascular Auscultation: RRR Abdomen Auscultation/Inspection/Palpation: Non-distended, No masses and Tenderness Female Genitalia (Pelvic) Exam: Declined by Patient (Explained to the patient the importance of pelvic exam as part of the evaluation, all questions answered patient declined the exa m) RETAIL BUSINESS MANAGER - Results Labs CBC & Chem 7: 04/08/20 07:04 04/07/20 06:00 Labs: Short CBC 04/07/20 Range/Units 06:00 WBC 15.0 H (4.8-10.8) X10*3/uL Hgb 14.1 (12.0-16.0) g/dl Hct 41.9 (37-47) % Plt Count 252 (160-400) X10*3/uL BMP 04/07/20 06:00 Sodium 139 Potassium 4.1 Chloride 105 Carbon Dioxide 26 BUN 7 L Creatinine 0.71 Calcium 8.5 Liver Function 04/07/20 Range/Units 06:00 Total Bilirubin 0.6 (0.0-1.0) mg/dL Direct Bilirubin 0.2 (0.0-0.5) mg/dL AST 19 (5-31) U/L ALT 17 (0-31) U/L Alkaline Phosphatase 75 (39-117) U/L Albumin 3.6 (3.5-5.0) g/dL Urine 04/07/20 Range/Units 06:00 Urine Color YELLOW Urine Appearance CLEAR Urine pH 7.0 (5.0-8.0) Ur Specific [place] 1.020 (1.005-1.025) Urine Protein NEG (NEG-TRACE) MG/DL Urine Glucose (UA) NEG (NEG) MG/DL Urine Test NEGATIVE (NEGATIVE) Assessment and Plan (1) TOA (tubo-ovarian abscess): Problem details: Improving Status: Inactive Discussed with the patient the clinical scenario: Leukocytosis, 3 cm fluid collection looking like abscess on the right nav pelvis by CT scan and bilateral hypodense areas in both adnexa suggested of tubo-ovarian abscess and possible ruptured appendix. Ultrasound of the pelvis was essentially negative, GC and chlamydia sent. Will check a general surgical consult, admit the patient for triple antibiotics, ampicillin 2 g IV q.6, gentamicin 5 mg per Kg and clindamycin 900 mg IV q.8. if the patient does not improve in 48 hours will con clinical program coordinator Interventional Radiology consult. Also will follow general surgery assessment re: possibility of ruptured appendix and for any need for surgical intervention. Patient received Zosyn prior to my evaluation so blood cultures will not be sent
[2020-04-07 15:20] LABS: CT PCR DETECTED (Not Detect.); NG PCR NOT DETECTED (Not Detect.)
--- NOTE | 2020-04-07 15:23 | P.CONGS_ITS ---
History of Present Illness Consult details Consult date: 04/07/20 Narrative: 24F here in the ED for pelvic pain an rib pain on the right. She says she has had these for about 4 days now. She actually went to the in [place] yesterday and was diagnosed to have PID and was discharged on antibiotics. She says her pain has persisted so she came to the ED today. She describes vaginal drainage as well. She says this is often brownish to reddish in color. She admits to being sexually active with a single sexual partner. She says she has severe anxiety and admits to many social isues. Review of Systems Constitutional: Constitutional: Denies chills and Denies fever(s) Cardiovascular: Cardiovascular: Denies chest pain Respiratory: Respiratory: Denies cough Gastrointestinal: Gastrointestinal: Reports constipation and Reports diarrhea Genitourinary: Genitourinary: Reports difficulty voiding Neurologic: Denies focal weakness Psychiatric: Comments: has severe anxiety PMFSH Past Medical History Medical History No known health problems Social History Social History Smoking Status: Current every day smoker Use of substances other than those prescribed or required for medical reasons: No Substance Use Type: Former Substance User Advance Directives: No Advance Directives Information Provided: No Meds Allergies Allergy/AdvReac Type Severity Reaction Status Date / Time No Known Allergies Allergy Verified 04/07/20 05:44 Physical Exam Vital Signs: Vital Signs: Vital Signs Temp Pulse Resp BP Pulse Ox 04/07/20 14:08 98.2 F 79 18 105/45 L 98 04/07/20 10:15 98.7 F 89 18 117/67 99 04/07/20 06:53 98.1 F 84 16 106/54 L 99 04/07/20 05:45 98.3 F 91 18 114/67 98 Body Mass Index 23.6 Const: Other: very anxious, sometimes distraught, not ill-appearing Cardio: Rate: regular rate GI: Other: soft, no guarding or rebound, mild tenderness on pelvis as well as right flank area, no hernias, no Rovsing's sign Results Labs Result diagrams: 04/07/20 06:00 04/07/20 06:00 Labs: Abnormal lab results 04/07/20 04/07/20 04/07/20 Range/Units 06:00 06:00 06:00 WBC 15.0 H (4.8-10.8) X10*3/uL MPV 8.5 L (9.4-12.3) fL Lymph % (Auto) 12.7 L (20-40) % Eos % (Auto) 7.1 H (0-4) % Eos # (Auto) 1.1 H (0.0-0.4) X10*3/uL Abs Immat Gran (auto) 0.06 H (0.00-0.03) X10*3/uL Absolute Neuts (auto) 10.9 H (2.0-8.3) X10*3/uL BUN 7 L (9-16) mg/dL Total Protein 6.0 L (6.5-8.0) g/dL Urine Blood (NEG) Urine RBC (0) /HPF Chlam trachomat DNA PCR (Not Detect.) 04/07/20 04/07/20 Range/Units 06:00 12:51 WBC (4.8-10.8) X10*3/uL MPV (9.4-12.3) fL Lymph % (Auto) (20-40) % Eos % (Auto) (0-4) % Eos # (Auto) (0.0-0.4) X10*3/uL Abs Immat Gran (auto) (0.00-0.03) X10*3/uL Absolute Neuts (auto) (2.0-8.3) X10*3/uL BUN (9-16) mg/dL Total Protein (6.5-8.0) g/dL Urine Blood 2+ H (NEG) Urine RBC 5-9 H (0) /HPF Chlam trachomat DNA PCR DETECTED A (Not Detect.) Short CBC 04/07/20 Range/Units 06:00 WBC 15.0 H (4.8-10.8) X10*3/uL Hgb 14.1 (12.0-16.0) g/dl Hct 41.9 (37-47) % Plt Count 252 (160-400) X10*3/uL BMP 04/07/20 06:00 Sodium 139 Potassium 4.1 Chloride 105 Carbon Dioxide 26 BUN 7 L Creatinine 0.71 Calcium 8.5 Liver Function 04/07/20 Range/Units 06:00 Total Bilirubin 0.6 (0.0-1.0) mg/dL Direct Bilirubin 0.2 (0.0-0.5) mg/dL AST 19 (5-31) U/L ALT 17 (0-31) U/L Alkaline Phosphatase 75 (39-117) U/L Albumin 3.6 (3.5-5.0) g/dL Urine 04/07/20 Range/Units 06:00 Urine Color YELLOW Urine Appearance CLEAR Urine pH 7.0 (5.0-8.0) Ur Specific [place] 1.020 (1.005-1.025) Urine Protein NEG (NEG-TRACE) MG/DL Urine Glucose (UA) NEG (NEG) MG/DL Urine Test NEGATIVE (NEGATIVE) All other labs normal. Assessment and Plan (1) TOA (tubo-ovarian abscess): Problem details: r/o ruptured appendicitis Status: Acute She has pelvic pain and her CT scan suggests a TOA. I have been consulted in view of possible appendicitis as a differential. Acute appendicitis is very unlikely at this time based on her history as well as exam. I have reviewed her images and the appendix itself does not appear distended or inflammed. She has been admitted by the Gyne service already. I will follow along while she is in the hospital. I have discussed the above with the ED staff.The exam was done in the presence of a female ED staff.
[2020-04-07] MEDS: oxyCODONE HCl Immed Release 5 MG TABLET PO (15:52)
[2020-04-07] MEDS: Clindamycin Phosphate/D5W 900 MG/50 ML PIGGYBACK 50 MG IV ×2 (15:53→23:48)
[2020-04-07] MEDS: Lactated Ringers 1,000 ML 125 ML IVCONT (17:18)
[2020-04-08] MEDS: oxyCODONE HCl Immed Release 5 MG TABLET PO (04:53)
[2020-04-08] MEDS: ondansetron HCL 4 MG/2 ML VIAL IVPUSH (06:12)
[2020-04-08] MEDS: Ampicillin Sodium 2 GM in 0.9 % Sodium Chloride 100 ML IV ×3 (06:12→17:45)
[2020-04-08 07:28] LABS: MANUAL DIFF FLAG NO
[2020-04-08 07:35] LABS: Basophils Absolute Auto 0.1 X10*3/uL (0.0-0.2); Basophils Percent Auto 0.6 % (0-2); Eosinophils Absolute Auto 0.8 X10*3/uL (0.0-0.4); Eosinophils Percent Auto 7.5 % (0-4); Hematocrit 37.9 % (37-47); Imm Gran Abs Auto 0.04 X10*3/uL (0.00-0.03); Imm Gran Pct Auto 0.4 % (0.0-0.4); Lymphocytes Absolute Auto 1.6 X10*3/uL (1.2-4.9); Lymphocytes Percent Auto 15.8 % (20-40); Mean Corpuscular HGB Conc 34.3 g/dl (31.0-35.0); Mean Corpuscular Hemoglobin 32.3 pg (27.0-33.0); Mean Corpuscular Volume 94.3 fL (80-98); Mean Platelet Volume 8.9 fL (9.4-12.3); Monocytes Absolute Auto 0.8 X10*3/uL (0.1-1.2); Monocytes Percent Auto 7.7 % (2-11); Platelet Count 246 X10*3/uL (160-400); Red Blood Count 4.02 X10*6/uL (4.20-5.50); Red Cell Distribution Width 12.2 % (11.0-16.0); White Blood Count 10.4 X10*3/uL (4.8-10.8)
[2020-04-08] MEDS: Clindamycin Phosphate/D5W 900 MG/50 ML PIGGYBACK 50 MG IV ×3 (07:40→23:14)
[2020-04-08 08:00] VITALS: BP 121/72; PULSE 88; RESP 18; TEMP 36.3; O2SAT 100
--- NOTE | 2020-04-08 09:17 | PM.PNGS ---
Subjective Subjective Interval history: says she is comfortable in much better mood not anxious pleasant today mild pain on pelvis says she continues to have vaginal discharge Physical Exam Vital Signs: Vital Signs: Vital Signs Temp Pulse Resp BP Pulse Ox 04/08/20 08:00 97.4 F 88 18 121/72 100 04/07/20 23:24 96.7 F L 78 16 122/47 L 99 04/07/20 18:59 98.3 F 86 18 124/67 99 04/07/20 15:23 98.8 F 90 17 107/55 L 98 04/07/20 14:08 98.2 F 79 18 105/45 L 98 04/07/20 10:15 98.7 F 89 18 117/67 99 Body Mass Index 23.6 Chemistry 04/07/20 06:00 Sodium 139 Potassium 4.1 Carbon Dioxide 26 BUN 7 L Creatinine 0.71 Calcium 8.5 Hematology 04/07/20 04/08/20 06:00 07:04 WBC 15.0 H 10.4 Hgb 14.1 13.0 Plt Count 252 246 Urinalysis 04/07/20 06:00 Urine Color YELLOW Urine Appearance CLEAR Urine pH 7.0 Ur Specific Gravit y 1.020 Urine Protein NEG Urine Glucose (UA) NEG Urine Ketones NEG Urine Blood 2+ H Urine Nitrite NEG Ur Leukocyte Clau ase NEG Urine RBC 5-9 H Urine WBC 0 Ur Squamous Epith Cells 1+ Const: General: comfortable and no acute distress GI: Other: soft, nondistended, no guarding or rebound, some tenderness on right pelvis area Progress Note: A&P Assessment and plan (1) TOA (tubo-ovarian abscess): Problem details: r/o ruptured appendicitis Status: Acute Assessment and Plan: looks well pelvic abscess unlikely to be from appendix WBC down to 15 abd benign treat as DANO Roe Fall Risk Details Current Medications: Current Medications Generic Name Dose Route Start Last Admin Trade Name Freq PRN Reason Stop Dose Admin Gentamicin Sulfate 5 mg/ 100.125 mls @ 100 mls/hr 04/07/20 14:30 04/07/20 20:09 Sodium Chloride IV Infused Q24H JORGE Infusion Lactated Ringer's 1,000 mls @ 125 mls/hr 04/07/20 14:30 04/08/20 07:41 Lr IVCONT Not Given .Q8H JORGE Clindamycin Phosphate 900 mg in 50 mls @ 50 mls/hr 04/07/20 14:30 04/08/20 08:40 Cleocin IV Infused Q8H [facility] Infusion Ampicillin Sodium 2 gm/ Sodium 100 mls @ 100 mls/hr 04/08/20 06:00 04/08/20 07:46 Chloride IV Infused Q6H JORGE Infusion Ketorolac Tromethamine 30 mg 04/07/20 14:20 04/07/20 20:22 Ketorolac Tromethamine 30 Mg/Ml Vial IVPUSH 30 mg Q6H PRN Administration Pain, Moderate (Pain Scale 4-6 Ondansetron HCl 4 mg 04/08/20 05:42 04/08/20 06:12 Ondansetron Hcl 4 Mg/2 Ml Vial IVPUSH 4 mg Q6H PRN Administration Nausea and Vomiting Oxycodone HCl 5 mg 04/07/20 14:16 04/08/20 04:53 Oxycodone Hcl Immed Release 5 Mg Tablet PO 5 mg Q3H PRN Administration Pain, Moderate (Pain Scale 4-6 Time Spent With Patient Time: Total time spent is greater than 50% in coordination of care (as documented) at patient's floor/unit and/or counseling patient: Time with patient: less than 15 minutes
--- NOTE | 2020-04-08 10:21 | MHC.CM.PN ---
PATIENT STATES THAT ONCE SHE HAS A [place] ID, SHE CAN OBTAIN INSURANCE. SHE SAYS THAT SHE HAS ALREADY SPOKEN WITH SOMEONE FROM [facility] ABOUT SECURING [place] IT IS UNCLEAR TO THIS DECORATING MACHINE TENDER WHO PATIENT WAS CONTACTED BY. SHE DOES NOT HAVE A PCP YET. SHE VERIFIES HER PHONE NUMBER [phone]. PATIENT DROVE SELF HERE AND WILL TRANSPORT HERSELF HOME. SHE WORKS AT [employer], AND WILL NEED A NOTE PERTAINING TO HER STAY HERE. SHE WILL ALSO NEED A COPY OF HER COVID RESULTS PATIENT IS ON IV ABX AND BEING MONITORED. CASE MANAGEMENT AVAILABLE IF NEEDED.
--- NOTE | 2020-04-08 12:13 | PM.GYNPNOP ---
CUSTOMER RELATIONSHIP SPECIALIST - Subjective Subjective Interval history: Doing well with no complaints, on ampicillin, gentamicin, clindamycin. Pain is improving. Patient had an episode of nausea this morning was treated with Zofran. No other Subjective Findings: Ambulating well: Reports, Bleeding normal: Reports, Constipation: Denies, Cramping: Reports, Depression: Denies, Flatus passed: Reports, Nausea: Reports, Pain well-controlled: Reports and Voiding difficulty: Denies CUSTOMER RELATIONSHIP SPECIALIST - A/P (1) TOA (tubo-ovarian abscess): Problem details: Improving Status: Acute Assessment and Plan: Will keep the patient on triple antibiotics, analgesia with ibuprofen and oxycodone as needed. Ambulating, voiding freely. Regular diet. Discussed with the patient the improvement in leukocytosis and pain control. All questions answered patient verbalized understand. Time Spent With Patient Time: Total time spent is greater than 50% in coordination of care (as documented) at patient's floor/unit and/or counseling patient: Time with patient: 15 - 24 minutes
[2020-04-08 12:57] LABS: BV Int Neg Control Negative (Negative); BV Int Pos Control Positive (Positive)
[2020-04-08] MEDS: Lactated Ringers 1,000 ML 125 ML IVCONT (14:50)
[2020-04-08 16:00] VITALS: BP 104/45; PULSE 89; RESP 22; TEMP 37.1; O2SAT 99
[2020-04-08] MEDS: Ketorolac Tromethamine 30 MG/ML VIAL IVPUSH ×2 (17:45→23:17)
--- NOTE | 2020-04-08 19:52 | PC.NURSE ---
1744- Pt concerned that vaginal bleeding is getting worse and that pain is moving from R side to the middle of abd. She states she bleeds, apple juice size cup: everytime she gets up to use bathroom, with clots. She went through 5 mayco-pads in [address] Roe made aware. He stated no changes at this time, monitor bleeding, if bleeding increases to soaking 1 pad an hour for more than an hour consistently to notify him. Pt made aware. Will continue to monitor.
[2020-04-08] MEDS: Docusate Sodium 100 MG CAPSULE PO (20:26)
[2020-04-08 23:17] VITALS: BP 113/64; PULSE 82; RESP 19; TEMP 36.2; O2SAT 99
[2020-04-09] MEDS: Ampicillin Sodium 2 GM in 0.9 % Sodium Chloride 100 ML IV ×4 (00:37→18:22)
[2020-04-09] MEDS: Lactated Ringers 1,000 ML 125 ML IVCONT ×2 (00:46→10:33)
[2020-04-09] MEDS: ondansetron HCL 4 MG/2 ML VIAL IVPUSH ×2 (05:02→18:39)
[2020-04-09] MEDS: Clindamycin Phosphate/D5W 900 MG/50 ML PIGGYBACK 50 MG IV ×3 (06:11→22:36)
[2020-04-09 08:00] VITALS: BP 125/63; PULSE 78; RESP 20; TEMP 36.3; O2SAT 99
--- NOTE | 2020-04-09 09:40 | PM.PNGS ---
Subjective Subjective Patient reports: no new complaints Interval history: denies pelvic or abdominal pain wants to go home feels much better, in good mood Physical Exam Vital Signs: Vital Signs: Vital Signs Temp Pulse Resp BP Pulse Ox 04/09/20 08:00 97.4 F 78 20 125/63 99 04/08/20 23:17 97.2 F 82 19 113/64 99 04/08/20 16:00 98.8 F 89 22 H 104/45 L 99 Body Mass Index 23.6 Const: General: cooperative, comfortable, no acute distress and alert GI: Palpation (GI): Soft to palpation, nontender and no guarding Progress Note: A&P Assessment and plan (1) TOA (tubo-ovarian abscess): Problem details: Improving Status: Acute Assessment and Plan: clinically not c/w appendicitis/appendiceal abscess continue to treat as TOA asymptomatic, no tenderness no fever or leukocytosis much improved on IV abx disposition as per Gyne Fall Risk Details Current Medications: Current Medications Generic Name Dose Route Start Last Admin Trade Name Freq PRN Reason Stop Dose Admin Azithromycin 1,000 mg 04/09/20 09:29 Azithromycin 500 Mg Tablet PO 04/09/20 09:30 ONCE ONE Docusate Sodium 100 mg 04/08/20 18:40 04/08/20 20:26 Docusate Sodium 100 Mg Capsule PO 100 mg BEDTIME PRN Administration Constipation Lactated Ringer's 1,000 mls @ 125 mls/hr 04/07/20 14:30 04/09/20 08:00 Lr IVCONT Not Given .Q8H JORGE Clindamycin Phosphate 900 mg in 50 mls @ 50 mls/hr 04/07/20 14:30 04/09/20 07:20 Cleocin IV Infused Q8H [facility] Infusion Ampicillin Sodium 2 gm/ Sodium 100 mls @ 100 mls/hr 04/08/20 06:00 04/09/20 06:08 Chloride IV Infused Q6H [facility] Infusion Gentamicin Sulfate 275 mg/ 106.875 mls @ 106.875 mls/hr 04/08/20 15:00 04/08/20 17:37 Sodium Chloride IV 04/11/20 15:59 Infused DAILY@1500 [facility] Infusion Ketorolac Tromethamine 30 mg 04/07/20 14:20 04/08/20 23:17 Ketorolac Tromethamine 30 Mg/Ml Vial IVPUSH 30 mg Q6H PRN Administration Pain, Moderate (Pain Scale 4-6 Metronidazole 500 mg 04/09/20 09:30 Metronidazole 500 Mg Tablet PO 04/16/20 09:29 Q12H JORGE Ondansetron HCl 4 mg 04/08/20 05:42 04/09/20 05:02 Ondansetron Hcl 4 Mg/2 Ml Vial IVPUSH 4 mg Q6H PRN Administration Nausea and Vomiting Oxycodone HCl 5 mg 04/07/20 14:16 04/08/20 04:53 Oxycodone Hcl Immed Release 5 Mg Tablet PO 5 mg Q3H PRN Administration Pain, Moderate (Pain Scale 4-6 Time Spent With Patient Time: Total time spent is greater than 50% in coordination of care (as documented) at patient's floor/unit and/or counseling patient: Time with patient: less than 15 minutes
[2020-04-09] MEDS: metroNIDAZOLE 500 MG TABLET PO ×2 (10:31→21:42)
[2020-04-09] MEDS: Azithromycin 500 MG TABLET 1000 MG PO (10:31)
--- NOTE | 2020-04-09 14:02 | PM.GYNPNOP ---
VENTILATING ENGINEER - Subjective Subjective Interval history: Doing well with no complaints, on ampicillin, gentamicin, clindamycin. Pain has resolved . Patient had an episode of nausea this morning was treated with Zofran. No other complaints CT was +, BV+ neg trich, GC. STD screen serology still pending. Subjective Findings: Ambulating well: Reports, Bleeding normal: Denies and Pain well-controlled: Reports VENTILATING ENGINEER - A/P (1) TOA (tubo-ovarian abscess): Problem details: Improving Status: Acute Assessment and Plan: will keep on triple antibiotics till tmorrow and if still improving will d/c on po antibiotics (2) Chlamydia: Status: Acute Assessment and Plan: Zithromax 1 g po given, d/w patient the results. Instructed patient to inform her sexual partner, to refrain from intercourse for 1 week after both were treated. will check std serology , recommended to repeat in 6 months for the possible false negative rate, and to follow up for a test of cure in 2 weeks in the office. The patient agreed with the plan. (3) Bacterial vaginal infection: Status: Acute Assessment and Plan: Flagyl 500 mg po bid x 7 days. Instructed the patient not to drink any alcoholic beverages during the course antibiotics. All questions answered the patient verbalized understanding. Time Spent With Patient Time: Total time spent is greater than 50% in coordination of care (as documented) at patient's floor/unit and/or counseling patient: Time with patient: 15 - 24 minutes
[2020-04-09 16:00] VITALS: BP 129/68; PULSE 98; RESP 18; TEMP 36.2; O2SAT 98
[2020-04-10] VITALS: BP 95/50; PULSE 77; RESP 16; TEMP 36.3; O2SAT 98
[2020-04-10] MEDS: ondansetron HCL 4 MG/2 ML VIAL IVPUSH (03:36)
[2020-04-10 03:45] LABS: Syphilis Screen Nonreactive (Nonreactive)
[2020-04-10 04:12] LABS: HBsAGNum1 0.15 S/CO (0.00-0.99); HIV AB/AG Nonreactive (Nonreactive); Hepatitis B Surface Antigen Negative (Negative)
[2020-04-10 04:20] VITALS: BP 118/68; PULSE 81; RESP 16; TEMP 36.6; O2SAT 95
[2020-04-10] MEDS: Ampicillin Sodium 2 GM in 0.9 % Sodium Chloride 100 ML IV ×2 (05:29)
[2020-04-10] MEDS: Clindamycin Phosphate/D5W 900 MG/50 ML PIGGYBACK 50 MG IV (06:37)
[2020-04-10 07:20] VITALS: BP 110/61; PULSE 75; RESP 17; TEMP 36.7; O2SAT 99
--- NOTE | 2020-04-10 08:13 | P.PNOB_ITS ---
MARITIME PILOT - Subjective Subjective Interval history: Doing well with no complaints, on ampicillin, gentamicin, clindamycin. Pain has resolved . Patient had an episode of nausea this morning was treated with Zofran. No other complaints CT was +, BV+ neg trich, GC. STD screen serology including hep B surface antigen , HIV and RPR were negative patient took 1 g of Zithromax and was started on Flagyl 500 mg p.o. b.i.d. yesterday. MARITIME PILOT - A/P (1) TOA (tubo-ovarian abscess): Problem details: Improving Status: Acute Assessment and Plan: Will discharge the patient home on Levaquin 500 mg p.o. q.d., Flagyl 500 mg p.o. b.i.d. for 14 days. Follow up in the office for a test of cure. The patient was instructed to inform her sexual partners about the positive chlamydia to be tested and treated & the pt stated that she reached out to them. Instruction given to patient to call if temperature above 100.4 severe abdominal pain nausea or vomiting and heavy vaginal bleeding all questions answered patient verbalized understanding. (2) Chlamydia: Status: Acute Assessment and Plan: Zithromax 1 g given. Patient's current partner already contacted his primary care physician to be tested and treated today and the patient restart her previous partner to be tested and treated. (3) Bacterial vaginal infection: Status: Acute Assessment and Plan: Instructed the patient to continue her Flagyl for 14 days since part of the p.o. treatment for TOA and PID. Time Spent With Patient Time: Total time spent is greater than 50% in coordination of care (as documented) at patient's floor/unit and/or counseling patient: Time with patient: 15 - 24 minutes
--- NOTE | 2020-04-10 08:22 | PM.GYNDS ---
DS: Plan Patient/Caregiver Discharge Instructions Forms: Patient Portal Discharge page
--- NOTE | 2020-04-10 08:29 | MHC.CM.PN ---
pt discharging today, home with no services. Pt to arrange transportation
[2020-04-10] MEDS: metroNIDAZOLE 500 MG TABLET PO (09:07)
== END 2020-04-10 09:20 | disposition home or self-care (01) | DRG 759 ==
LOC: HO.ED 14:22 → HO.S3 15:03
PROVIDERS: Emergency Medicine; Admitting Provider Obstetrics & Gynecology; Emergency Provider Emergency Medicine; Visit Provider Obstetrics & Gynecology
DX: N70.93 Salpingitis and oophoritis, unspecified (principal); A56.02 Chlamydial vulvovaginitis; Z20.828 Contact with and (suspected) exposure to other viral communicable diseases; F41.9 Anxiety disorder, unspecified; F17.290 Nicotine dependence, other tobacco product, uncomplicated; Z71.6 Tobacco abuse counseling
CPT/HCPCS: 36415; 71045; 74177; 76705; 76830; 76856; 80048; 80076; 81001; 81025; 83690; 83735; 85025; 86780; 87340; 87389; 87480; 87491; 87510; 87591; 87660; 96361; 96365; 96375; 99283; 99285; J0290; J1580; J1885; J2270; J2405; J2543; Q9967; U0003

== ENCOUNTER 2020-05-05 19:00 | Emergency (ER) | payer MEDICAID, SELFPAY ==
[2020-05-05 19:17] VITALS: BP 113/55; PULSE 86; RESP 18; TEMP 36.4; O2SAT 97; BMI 24.3
[2020-05-05 19:22] VITALS: BP 113/55; PULSE 102; RESP 18; TEMP 36.4; O2SAT 97
--- NOTE | 2020-05-05 20:25 | ED_ITS ---
HPI - Abdominal Pain General Chief Complaint: Abdominal Pain Stated Complaint: Abdominal pain Time Seen by Provider: 05/05/20 20:06 Source: patient Mode of arrival: ambulatory Limitations: no limitations History of Present Illness HPI narrative: Patient comes to emergency room complaining of vaginal itching and burning. Patient has history of tubal ovarian abscess which was treated with IV antibiotics, discharged home with 2 antibiotics. Patient states that her last dose was approximately 1 week ago. Since then, she has been having increased vaginal labial erythema, swelling, and itching. Patient states that she has ongoing right lower quadrant pain since she had the 2 ovarian abscess. Patient states her sexual partner was treated for chlamydia as well. Patient has not been sexually active since she was released from the hospital. Patient denies vomiting, no diarrhea, no fever. Related Data Previous Rx's Medication Instructions Recorded miconazole nitrate 1 supp VAGINAL BEDTIME #1 ea 05/05/20 Allergies Allergy/AdvReac Type Severity Reaction Status Date / Time No Known Allergies Allergy Verified 04/07/20 05:44 Review of Systems Review of Systems Constitutional : No Weight loss, No Fever, No Chills, No Night Sweats, No Fatigue, No Malaise ENT/Mouth : No Hearing loss, No Ear Pain, No Nasal Congestion, No Sinus Pain, No Hoarseness, No sore throat, No Rhinorrhea, No Swallowing Difficulty Eyes: No Eye Pain, No Swelling, No Redness, No Foreign Body, No Discharge, No Vision Changes Cardiovascular : No Chest Pain, No SOB, No Dyspnea on Exertion, No Orthopnea, No Edema, No Palpitations Respiratory : No Cough, No Sputum, No Wheezing, No Smoke Exposure, No Dyspnea Gastrointestinal : No Nausea, No Vomiting, No Diarrhea, complaining of burning right upper quadrant pain Genitourinary : Patient complaining of vaginal itching and erythema Musculoskeletal : No joint pain, No Myalgias, No Joint Swelling Skin : No Skin Lesions, No rash Neuro : No Weakness, No Numbness, No Paresthesias, No Loss of Consciousness, No Dizziness, No Headache Psych : No Anxiety/Panic, No Depression, No SI/HI/AH/VH, No Social Issues, Heme/Lymph: No Bruising, No Bleeding,No Lymphadenopathy Endocrine : No Polyuria, No Polydipsia, No Temperature Intolerance Physical Exam Vital Signs: Vital Signs: Last Vital Signs Temp 98.9 F 05/05/20 21:55 Pulse 77 11/27/20 21:55 Resp 15 05/05/20 21:55 BP 110/71 05/05/20 21:55 Pulse Ox 97 05/05/20 21:55 Body Mass Index 24.3 Appearance: Alert. Oriented X3. No acute distress. Eyes: Pupils equal, round and reactive to light. ENT: Pharynx normal. Neck: Normal inspection. Neck supple. No lymph nodes noted. No crepitus CVS: Normal heart rate and rhythm. Pulses normal. Normal S1 and S2 Respiratory: No respiratory distress. Breath sounds normal. No Wheezing. No rales Abdomen: Soft and nontender. No rigidity. No distention. good BS x4 : No vaginal discharge, patient does have significant erythema in both labia majora and around the vulva Skin: Skin warm and dry. Normal skin color. Normal skin turgor. Extremities: No lower extremity edema. No lower extremity edema. No Lacerations. No Rash Neuro: Oriented X 3. No motor deficit. No sensory deficit. Moving all extermities. No slurred speech. Course Course Course Narrative: I discussed the labs with the patient, patient does not have a UTI, the GC chlamydia results will be available in approximately 48-72 hours. At this time patient does not believe that she has a sexually transmitted disease as her sexual partner was treated and has not had any sexual intercourse since she was discharged from the hospital with oral antibiotics. Discussed with the patient that based on her physical exam she has vaginal candidiasis secondary to antibiotic use. Patient will be discharged with a 1 time dose of topical antifungal per patient's request rather than a prolonged treatment, patient given 1 dose of Diflucan in the emergency room. MDM - Abdominal Pain Lab Data Result diagrams: 05/05/20 20:40 05/05/20 20:40 Labs: Lab Results 05/05/20 05/05/20 05/05/20 Range/Units 20:20 20:40 20:40 WBC 9.3 (4.8-10.8) X10*3/uL RBC 4.21 (4.20-5.50) X10*6/uL Hgb 13.5 (12.0-16.0) g/dl Hct 38.7 (37-47) % MCV 91.9 (80-98) fL MCH 32.1 (27.0-33.0) pg MCHC 34.9 (31.0-35.0) g/dl RDW 12.9 (11.0-16.0) % Plt Count 259 (160-400) X10*3/uL MPV 8.7 L (9.4-12.3) fL Immature Gran % (Auto) 0.3 (0.0-0.4) % Neut % (Auto) 55.6 (45-73) % Lymph % (Auto) 25.5 (20-40) % [place] % (Auto) 10.9 (2-11) % Eos % (Auto) 6.6 H (0-4) % Baso % (Auto) 1.1 (0-2) % Lymph # (Auto) 2.4 (1.2-4.9) X10*3/uL [place] # (Auto) 1.0 (0.1-1.2) X10*3/uL Eos # (Auto) 0.6 H (0.0-0.4) X10*3/uL Baso # (Auto) 0.1 (0.0-0.2) X10*3/uL Abs Immat Gran (auto) 0.03 (0.00-0.03) X10*3/uL Absolute Neuts (auto) 5.2 (2.0-8.3) X10*3/uL Absolute Nucleated RBC 0.000 (0.0-0.012) X10*3/uL Nucleated RBC % (auto) 0.0 (0.0-0.2) /100WBC Sodium 138 (135-145) mmol/L Potassium 4.0 (3.3-5.1) mmol/l Chloride 105 (96-108) mmol/L Carbon Dioxide 25 (22-29) mmol/L Anion Gap 12 (12-20) BUN 7 L (9-16) mg/dL Creatinine 0.77 (0.5-1.4) mg/dL Estim Creat Clear Calc 94.8 Estimated GFR > 60 Random Glucose 89 (60-115) mg/dL Calcium 8.7 (8.4-10.2) mg/dL Total Bilirubin 0.4 (0.0-1.0) mg/dL Direct Bilirubin 0.2 (0.0-0.5) mg/dL AST 16 (5-31) U/L ALT 19 (0-31) U/L Alkaline Phosphatase 62 (39-117) U/L Total Protein 6.0 L (6.5-8.0) g/dL Albumin 3.7 (3.5-5.0) g/dL Urine Color YELLOW Urine Appearance CLEAR Urine pH 6.0 (5.0-8.0) Ur Specific [place] 1.025 (1.005-1.025) Urine Protein NEG (NEG-TRACE) MG/DL Urine Glucose (UA) NEG (NEG) MG/DL Urine Ketones NEG (NEG) MG/DL Urine Blood NEG (NEG) Urine Nitrite NEG (NEG) Ur Leukocyte Esterase NEG (NEG) Urine Test NEGATIVE (NEGATIVE) Discharge Plan Discharge Clinical Impression: Candidiasis of vagina Patient Disposition: Home, Self-Care Instructions: Yeast Infection (ED) Additional Instructions: Please follow-up with your primary care physician tomorrow. If you have any worsening or new symptoms, please return to the emergency room or call 911 Prescriptions: New miconazole nitrate 1,200-2 mg-% kit 1 supp vaginal BEDTIME Qty: 1 RF: 0 PMFSH Past Medical History Medical History No known health problems Social History Social History Household Members: None Housing: Apartment Alcohol intake: never Smoking Status: Current every day smoker Tobacco Type: E-Cigarette Smoked in Last 30 Days: No Use of substances other than those prescribed or required for medical reasons: Yes Substance Use Type: Marijuana Substance Use Frequency: Daily Last Used Substance: Hours (ago) Advance Directives: No service: No Current occupational status: employed
[2020-05-05 20:29] LABS: Glucose Urine UA NEG (NEG); Leukocyte Esterase Urine NEG (NEG); Nitrite Urine NEG (NEG); Specific Gravity - Urine 1.025 (1.005-1.025); Urine Blood NEG (NEG); Urine Ketones NEG (NEG); Urine Protein NEG (NEG-TRACE)
[2020-05-05 20:31] LABS: Appearance Urine CLEAR; Color Urine YELLOW; UPreg QC Valid YES; Urine Pregnancy NEGATIVE (NEGATIVE)
[2020-05-05 20:35] VITALS: BP 111/63; PULSE 80; RESP 16; TEMP 37.3; O2SAT 96
[2020-05-05 20:54] LABS: MANUAL DIFF FLAG NO
[2020-05-05 21:02] LABS: Basophils Absolute Auto 0.1 X10*3/uL (0.0-0.2); Basophils Percent Auto 1.1 % (0-2); Eosinophils Absolute Auto 0.6 X10*3/uL (0.0-0.4); Eosinophils Percent Auto 6.6 % (0-4); Hematocrit 38.7 % (37-47); Hemoglobin 13.5 g/dl (12.0-16.0); Imm Gran Abs Auto 0.03 X10*3/uL (0.00-0.03); Imm Gran Pct Auto 0.3 % (0.0-0.4); Lymphocytes Absolute Auto 2.4 X10*3/uL (1.2-4.9); Lymphocytes Percent Auto 25.5 % (20-40); Mean Corpuscular HGB Conc 34.9 g/dl (31.0-35.0); Mean Corpuscular Hemoglobin 32.1 pg (27.0-33.0); Mean Corpuscular Volume 91.9 fL (80-98); Mean Platelet Volume 8.7 fL (9.4-12.3); Monocytes Percent Auto 10.9 % (2-11); Neutrophils Absolute Auto 5.2 X10*3/uL (2.0-8.3); Neutrophils Percent Auto 55.6 % (45-73); Platelet Count 259 X10*3/uL (160-400); Red Blood Count 4.21 X10*6/uL (4.20-5.50); Red Cell Distribution Width 12.9 % (11.0-16.0); White Blood Count 9.3 X10*3/uL (4.8-10.8)
[2020-05-05 21:38] LABS: Alanine Aminotransferase 19 U/L (0-31); Albumin Level 3.7 g/dL (3.5-5.0); Alkaline Phosphatase 62 U/L (39-117); Anion Gap 12 (12-20); Aspartate Amino Transferase 16 U/L (5-31); Bilirubin Direct 0.2 mg/dL (0.0-0.5); Bilirubin Total 0.4 mg/dL (0.0-1.0); Blood Urea Nitrogen 7 mg/dL (9-16); Calcium 8.7 mg/dL (8.4-10.2); Carbon Dioxide 25 mmol/L (22-29); Chloride 105 mmol/L (96-108); Creatinine Clr Calc Pharmacy 94.8; Estimated Glomerular Filt Rate > 60; Glucose Random 89 mg/dL (60-115); Sodium 138 mmol/L (135-145)
[2020-05-05 21:55] VITALS: BP 110/71; PULSE 77; RESP 15; TEMP 37.2; O2SAT 97
[2020-05-05] MEDS: Fluconazole 150 MG TABLET PO (23:02)
== END 2020-05-05 23:05 | disposition home or self-care (01) ==
PROVIDERS: Emergency Provider Emergency Medicine
DX: B37.3 Candidiasis of vulva and vagina (principal); F17.210 Nicotine dependence, cigarettes, uncomplicated; Z71.6 Tobacco abuse counseling; Z79.899 Other long term (current) drug therapy
CPT/HCPCS: 36415; 80048; 80076; 81003; 81025; 85025; 99283; 99284

== ENCOUNTER 2020-05-10 08:10 | Outpatient (REF) | payer MEDICAID, SELFPAY ==
[2020-05-15 18:11] LABS: CT PCR NOT DETECTED (Not Detect.); NG PCR NOT DETECTED (Not Detect.)
== END 2020-05-10 08:11 | disposition home or self-care (01) ==
LOC: HO.LAB 08:10
PROVIDERS: Visit Provider Obstetrics & Gynecology
DX: N70.92 Oophoritis, unspecified (principal); A74.9 Chlamydial infection, unspecified; N92.1 Excessive and frequent menstruation with irregular cycle
CPT/HCPCS: 87491; 87591; 99212

== ENCOUNTER 2020-07-08 19:21 | Emergency (ER) | payer OTHER, SELFPAY ==
[2020-07-08 19:39] VITALS: BP 133/79; PULSE 89; RESP 18; TEMP 36.8; O2SAT 100; BMI 21.2
[2020-07-08 20:00] VITALS: BP 121/85; PULSE 81; RESP 16; TEMP 36.9; O2SAT 99
[2020-07-08 20:03] LABS: MANUAL DIFF FLAG NO
[2020-07-08 20:06] LABS: Basophils Absolute Auto 0.1 X10*3/uL (0.0-0.2); Basophils Percent Auto 0.5 % (0-2); Eosinophils Absolute Auto 0.4 X10*3/uL (0.0-0.4); Eosinophils Percent Auto 4.4 % (0-4); Hematocrit 47.3 % (37-47); Hemoglobin 16.7 g/dl (12.0-16.0); Imm Gran Abs Auto 0.02 X10*3/uL (0.00-0.03); Imm Gran Pct Auto 0.2 % (0.0-0.4); Lymphocytes Absolute Auto 1.8 X10*3/uL (1.2-4.9); Lymphocytes Percent Auto 18.6 % (20-40); Mean Corpuscular HGB Conc 35.3 g/dl (31.0-35.0); Mean Corpuscular Hemoglobin 32.9 pg (27.0-33.0); Mean Corpuscular Volume 93.1 fL (80-98); Mean Platelet Volume 8.8 fL (9.4-12.3); Monocytes Absolute Auto 0.7 X10*3/uL (0.1-1.2); Monocytes Percent Auto 7.5 % (2-11); Neutrophils Absolute Auto 6.8 X10*3/uL (2.0-8.3); Neutrophils Percent Auto 68.8 % (45-73); Platelet Count 364 X10*3/uL (160-400); Red Blood Count 5.08 X10*6/uL (4.20-5.50); Red Cell Distribution Width 12.3 % (11.0-16.0); White Blood Count 9.9 X10*3/uL (4.8-10.8)
[2020-07-08 20:25] LABS: COVID-19 Test Negative (Negative); IDNOW Serial# 9DD0AD1C
[2020-07-08 20:27] LABS: Anion Gap 17 (12-20); Blood Urea Nitrogen 11 mg/dL (9-16); Calcium 10.1 mg/dL (8.4-10.2); Carbon Dioxide 25 mmol/L (22-29); Chloride 104 mmol/L (96-108); Creatinine Clr Calc Pharmacy 66.8; Estimated Glomerular Filt Rate 60; Glucose Random 97 mg/dL (60-115); Potassium 3.5 mmol/L (3.3-5.1); Sodium 142 mmol/L (135-145)
--- NOTE | 2020-07-08 21:48 | ED_ITS ---
HPI - Weakness General Chief complaint: Weakness Stated complaint: Weakness Time Seen by Provider: 07/08/20 21:11 Source: patient Mode of arrival: ambulatory History of Present Illness HPI Narrative: This is a 24-year-old female who presents stating that she has ?gotten back into drugs? again and that she is concerned she has not been gett ing the drugs that she thinks she was getting. She states that last night she had taken some drugs and felt very dizzy afterwards and weak and ?came close to passing out?. Otherwise, she denies fevers, chills, sore throat, cough, shortness of breath, chest pain/palpitations. Patient states that she has been using cocaine, strictly cocaine. Related Data Previous Rx's Medication Instructions Recorded miconazole nitrate 1 supp VAGINAL BEDTIME #1 ea 05/05/20 L norgest/E estradiol-E estrad 1 tab PO DAILY 90 Days #90 ea 05/10/20 0.15 mg-30 mcg (84)/10 mcg(7) tabs,3mos Allergies Allergy/AdvReac Type Severity Reaction Status Date / Time No Known Allergies Allergy Verified 07/08/20 19:44 Review of Systems Review of Systems: Pertinent positives and negatives as stated in HPI 10 point review of systems is otherwise negative. PMFSH Past Medical History Source: nursing notes reviewed Medical History H/O: substance abuse No known health problems TOA (tubo-ovarian abscess) Social History Social History Household Members: None Housing: Apartment Alcohol intake: never Smoking Status: Current every day smoker Tobacco Type: E-Cigarette Use of substances other than those prescribed or required for medical reasons: Yes Substance Use Type: Marijuana Advance Directives: No Advance Directives Information Provided: No service: No Current occupational status: employed Sexual orientation: Straight/Heterosexual Gender identity: female Physical Exam Vital Signs: Vital Signs: Last Vital Signs Temp 98.5 F 07/08/20 20:00 Pulse 81 07/08/20 20:00 Resp 16 07/08/20 20:00 BP 121/85 07/08/20 20:00 Pulse Ox 99 07/08/20 20:00 Body Mass Index 21.2 VITAL SIGNS: Reviewed. GENERAL: Well developed, well nourished, in no acute distress. NOSE: Nares patent bilateral OROPHARYNX: no oral lesions noted, posterior pharynx clear NECK: Supple, no adenopathy LUNGS: Normal breath sounds. No adventitious sounds or accessory muscle use. SpO2<100> CARDIOVASCULAR: Regular rate and rhythm without noted murmurs ABDOMEN: Soft, non-tender, non-distended with bowel sounds. MUSCULOSKELETAL: No tenderness, deformities, or effusions noted on gross inspection. EXTREMITIES: No cyanosis, clubbing or edema. SKIN: Inspection of the skin reveals no rashes NEUROLOGIC: Alert and oriented x 4. Course Course Course Narrative: This is a 24-year-old female with history and clinical presentation highly likely consistent with feeling weak secondary to drug use and unclear if the drugs that she was provided were contaminated or ?cut? with other substances. It was explained to her in detail that we are unable to screen for fentanyl, but would be willing to inform her of what the urinalysis is positive for in the context that there are cross-reactivity at times. She states she is feeling better after having eaten and drink water. All investigations were reviewed without acute findings other than elevated hemoglobin which is consistent with patient's poor oral intake. All results and findings were discussed with her bedside to include the urine tox results. She was discharged in stable condition and felt much better. MDM - Weakness Lab Data Result diagrams: 07/08/20 19:53 07/08/20 19:53 Labs: Lab Results 07/08/20 07/08/20 07/08/20 Range/Units 19:53 19:53 19:54 WBC 9.9 (4.8-10.8) X10*3/uL RBC 5.08 D (4.20-5.50) X10*6/uL Hgb 16.7 H D (12.0-16.0) g/dl Hct 47.3 H D (37-47) % MCV 93.1 (80-98) fL MCH 32.9 (27.0-33.0) pg MCHC 35.3 H (31.0-35.0) g/dl RDW 12.3 (11.0-16.0) % Plt Count 364 D (160-400) X10*3/uL MPV 8.8 L (9.4-12.3) fL Immature Gran % (Auto) 0.2 (0.0-0.4) % Neut % (Auto) 68.8 (45-73) % Lymph % (Auto) 18.6 L (20-40) % [place] % (Auto) 7.5 (2-11) % Eos % (Auto) 4.4 H (0-4) % Baso % (Auto) 0.5 (0-2) % Lymph # (Auto) 1.8 (1.2-4.9) X10*3/uL [place] # (Auto) 0.7 (0.1-1.2) X10*3/uL Eos # (Auto) 0.4 (0.0-0.4) X10*3/uL Baso # (Auto) 0.1 (0.0-0.2) X10*3/uL Abs Immat Gran (auto) 0.02 (0.00-0.03) X10*3/uL Absolute Neuts (auto) 6.8 (2.0-8.3) X10*3/uL Absolute Nucleated RBC 0.000 (0.0-0.012) X10*3/uL Nucleated RBC % (auto) 0.0 (0.0-0.2) /100WBC Sodium 142 (135-145) mmol/L Potassium 3.5 (3.3-5.1) mmol/L Chloride 104 (96-108) mmol/L Carbon Dioxide 25 (22-29) mmol/L Anion Gap 17 (12-20) BUN 11 D (9-16) mg/dL Creatinine 1.14 (0.5-1.4) mg/dL Estim Creat Clear Calc 66.8 Estimated GFR 60 Random Glucose 97 (60-115) mg/dL Calcium 10.1 D (8.4-10.2) mg/dL Urine Color Urine Appearance Urine pH (5.0-8.0) Ur Specific [place] (1.005-1.025) Urine Protein (NEG-TRACE) MG/DL Urine Glucose (UA) (NEG) MG/DL Urine Ketones (NEG) MG/DL Urine Blood (NEG) Urine Nitrite (NEG) Ur Leukocyte Esterase (NEG) Urine RBC (0) /HPF Urine WBC (0-4) /HPF Ur Squamous Epith Cells /LPF Calcium Oxalate Crystal /LPF Amorphous Sediment /LPF Urine Bacteria /LPF Granular Casts /LPF Urine Mucus /LPF Urine Test (NEGATIVE) Urine Opiates Screen (Not Detect) Ur Barbiturates Screen (Not Detect) Ur Phencyclidine Scrn (Not Detect) Ur Amphetamines Screen (Not Detect) U Benzodiazepines Scrn (Not Detect) Urine Cocaine Screen (Not Detect) U Marijuana (THC) Screen (Not Detect) COVID-19 (NILAY) Negative (Negative) COVID-19 Clin Com See Note 07/08/20 07/08/20 Range/Units 21:38 21:38 WBC (4.8-10.8) X10*3/uL RBC (4.20-5.50) X10*6/uL Hgb (12.0-16.0) g/dl Hct (37-47) % MCV (80-98) fL MCH (27.0-33.0) pg MCHC (31.0-35.0) g/dl RDW (11.0-16.0) % Plt Count (160-400) X10*3/uL MPV (9.4-12.3) fL Immature Gran % (Auto) (0.0-0.4) % Neut % (Auto) (45-73) % Lymph % (Auto) (20-40) % [place] % (Auto) (2-11) % Eos % (Auto) (0-4) % Baso % (Auto) (0-2) % Lymph # (Auto) (1.2-4.9) X10*3/uL [place] # (Auto) (0.1-1.2) X10*3/uL Eos # (Auto) (0.0-0.4) X10*3/uL Baso # (Auto) (0.0-0.2) X10*3/uL Abs Immat Gran (auto) (0.00-0.03) X10*3/uL Absolute Neuts (auto) (2.0-8.3) X10*3/uL Absolute Nucleated RBC (0.0-0.012) X10*3/uL Nucleated RBC % (auto) (0.0-0.2) /100WBC Sodium (135-145) mmol/L Potassium (3.3-5.1) mmol/L Chloride (96-108) mmol/L Carbon Dioxide (22-29) mmol/L Anion Gap (12-20) BUN (9-16) mg/dL Creatinine (0.5-1.4) mg/dL Estim Creat Clear Calc Estimated GFR Random Glucose (60-115) mg/dL Calcium (8.4-10.2) mg/dL Urine Color DARK YELLOW Urine Appearance CLEAR Urine pH 6.0 (5.0-8.0) Ur Specific [place] 1.025 (1.005-1.025) Urine Protein 1+ H (NEG-TRACE) MG/DL Urine Glucose (UA) NEG (NEG) MG/DL Urine Ketones 5 (NEG) MG/DL Urine Blood NEG (NEG) Urine Nitrite NEG (NEG) Ur Leukocyte Esterase NEG (NEG) Urine RBC 0 (0) /HPF Urine WBC 1-4 (0-4) /HPF Ur Squamous Epith Cells TRACE /LPF Calcium Oxalate Crystal TRACE /LPF Amorphous Sediment 2+ /LPF Urine Bacteria NONE /LPF Granular Casts 0-2 /LPF Urine Mucus 4+ /LPF Urine Test NEGATIVE (NEGATIVE) Urine Opiates Screen Not Detected (Not Detect) Ur Barbiturates Screen Not Detected (Not Detect) Ur Phencyclidine Scrn Not Detected (Not Detect) Ur Amphetamines Screen Not Detected (Not Detect) U Benzodiazepines Scrn Not Detected (Not Detect) Urine Cocaine Screen POSITIVE H (Not Detect) U Marijuana (THC) Screen POSITIVE H (Not Detect) COVID-19 (NILAY) (Negative) COVID-19 Clin Com Discharge Plan Discharge Clinical Impression: Drug side effects Patient Disposition: Home, Self-Care Instructions: Dehydration (ED), Cocaine Abuse (ED) Additional Instructions: 1. Please increase fluid hydration especially with water as you are mildly dehydrated. Do not hesitate to return to the emergency department should you develop any acute worsening of symptoms. However, highly recommend [facility]. Prescriptions: No Action miconazole nitrate 1,200-2 mg-% kit 1 supp vaginal BEDTIME Qty: 1 RF: 0 L norgest/e.estradiol-e.estrad [Seasonique] 0.15 mg-30 mcg (84)/10 mcg (7) tablets,dose pack,3 month 1 tab PO DAILY 90 Days Qty: 90 RF: 0 Referrals: Physician,None [Primary Care Provider] - 2 days
[2020-07-08 21:50] LABS: Glucose Urine UA NEG (NEG); Leukocyte Esterase Urine NEG (NEG); Nitrite Urine NEG (NEG); Specific Gravity - Urine 1.025 (1.005-1.025); Urine Blood NEG (NEG); Urine Ketones 5 MG/DL (NEG); Urine Protein 1+ MG/DL (NEG-TRACE)
[2020-07-08 21:51] LABS: Appearance Urine CLEAR; Color Urine DARK YELLOW
[2020-07-08 21:53] LABS: UPreg QC Valid YES; Urine Pregnancy NEGATIVE (NEGATIVE)
[2020-07-08 22:16] LABS: Calcium Oxalate Crystals Urine TRACE /LPF; RBC Urine 0 /HPF (0); Squamous Epithelial Cell Urine TRACE /LPF
[2020-07-08 22:17] LABS: Amorphous Sediment Urine 2+ /LPF; Granular Casts Urine 0-2 /LPF; Mucus Urine 4+ /LPF
[2020-07-08 22:19] LABS: Amphetamine Screen Urine Not Detected (Not Detect); Barbiturates, Urine Not Detected (Not Detect); Benzodiazepines Screen Urine Not Detected (Not Detect); Cannabinoid Screen Urine POSITIVE (Not Detect); Cocaine Screen Urine POSITIVE (Not Detect); Opiate Screen Urine Not Detected (Not Detect); Phencyclidine Screen Urine Not Detected (Not Detect)
[2020-07-08 22:25] VITALS: BP 110/76; PULSE 75; RESP 17; TEMP 37; O2SAT 98
== END 2020-07-08 22:38 | disposition home or self-care (01) ==
PROVIDERS: Emergency Provider Student in an Organized Health Care Education/Training Program
DX: E86.0 Dehydration (principal); R42 Dizziness and giddiness; T40.5X5A Adverse effect of cocaine, initial encounter; Y92.9 Unspecified place or not applicable; F14.10 Cocaine abuse, uncomplicated; Z20.822 Contact with and (suspected) exposure to COVID-19; F17.290 Nicotine dependence, other tobacco product, uncomplicated
CPT/HCPCS: 36415; 80048; 80307; 81001; 81025; 85025; 87635; 99283; 99284

== ENCOUNTER 2020-09-04 14:46 | Emergency (ER) | payer OTHER, SELFPAY ==
--- NOTE | ~2020-09-04 | XR_ITS ---
EXAMINATION: XR HAND, RIGHT CLINICAL INFORMATION: Injury with swelling and tenderness COMPARISON: None TECHNIQUE: PA, lateral, and oblique views of the right hand. FINDINGS: The bones and soft tissues are normal. No fracture. Alignment is anatomic. Joint spaces are maintained. No erosions or soft tissue calcifications. XR/XR hand RT min 3V IMPRESSION: Normal right hand.
[2020-09-04 15:04] VITALS: BP 116/58; PULSE 90; RESP 18; TEMP 36.7; O2SAT 100; BMI 23.6
--- NOTE | 2020-09-04 16:23 | ED.EXTPRO ---
HPI - Extremity Problem General Chief complaint: Extremity Problem <TRESSA Hernandez Last Filed: 09/09/20 13:47> Stated complaint: R INDEX AND MID FINGER INJ <TRESSA Hernandez Last Filed: 09/09/20 13:47> Time Seen by Provider: 09/04/20 16:22 <TRESSA Hernandez Last Filed: 09/09/20 13:47> History of Present Illness HPI Narrative: Patient complains of pain in right index and middle fingers after closing them in a door today, no numbness no weakness no tingling no other injury <TRESSA Hernandez Last Filed: 09/09/20 13:47> Related Data Home medications: Previous Rx's Medication Instructions Recorded miconazole nitrate 1 supp VAGINAL BEDTIME #1 ea 05/05/20 L norgest/E estradiol-E estrad 1 tab PO DAILY 90 Days #90 ea 05/10/20 0.15 mg-30 mcg (84)/10 mcg(7) tabs,3mos <TRESSA Hernandez Last Filed: 09/09/20 13:47> Allergies/Adverse reactions: Allergies Allergy/AdvReac Type Severity Reaction Status Date / Time No Known Allergies Allergy Verified 07/08/20 19:44 <TRESSA Hernandez Last Filed: 09/09/20 13:47> Review of Systems Review of Systems: Positive for right index and 3rd finger pain after injury Negatives are no dizziness no weakness no fall no headache no head injury no neck pain no back pain no numbness weakness or tingling no laceration <TRESSA Hernandez Last Filed: 09/09/20 13:47> [facility] Past Medical History Source: nursing notes reviewed <TRESSA Hernandez Last Filed: 09/09/20 13:47> Medical History: Medical History (Updated 09/05/20 @ 00:00 by Background Datimon) Cocaine use H/O: substance abuse No known health problems Pelvic inflammation in female TOA (tubo-ovarian abscess) <TRESSA Hernandez Last Filed: 09/09/20 13:47> Social History Social History: Social History Household Members: None Housing: Apartment Alcohol intake: never Smoking Status: Current every day smoker Tobacco Type: E-Cigarette Substance Use Type: Marijuana Advance Directives: No Advance Directives Information Provided: Yes service: No Current occupational status: employed Sexual orientation: Straight/Heterosexual Gender identity: female <TRESSA Hernandez - Last Filed: 09/09/20 13:47> Physical Exam Vital Signs: Vital Signs: Last Vital Signs Temp 98.0 F 09/04/20 15:04 Pulse 90 09/04/20 15:04 Resp 18 09/04/20 15:04 BP 116/58 L 09/04/20 15:04 Pulse Ox 100 09/04/20 15:04 Body Mass Index 23.6 <TRESSA Hernandez - Last Filed: 09/09/20 13:47> Vital Signs: Last Vital Signs Temp 98.0 F 09/04/20 15:04 Pulse 90 09/04/20 15:04 Resp 18 09/04/20 15:04 BP 116/58 L 09/04/20 15:04 Pulse Ox 100 09/04/20 15:04 Body Mass Index 23.6 <Tony Hobbs MD - Last Filed: 09/22/20 13:47> General appearance no distress comfortable, cooperative Head is normocephalic atraumatic Neck is supple Respiratory no distress Extremities is right 2nd and 3rd fingers are tender mildly swollen mildly ecchymotic in the proximal phalanx, there is full range of motion in all the joints no evidence of any tendon deficit, neurovascular intact distal Skin no laceration no rash Neuro no focal deficit <TRESSA Hernandez - Last Filed: 09/09/20 13:47> Course Course Course Narrative: X-rays of the fingers were negative and patient is discharged diagnosis contusion <TRESSA Hernandez - Last Filed: 09/09/20 13:47> I have reviewed the chart <Tony Hobbs MD - Last Filed: 09/22/20 13:47> Discharge Plan Discharge Clinical Impression: Contusion of finger of right hand <TRESSA eHrnandez - Last Filed: 09/09/20 13:47> Patient Disposition: Home, Self-Care <TRESSA Hernandez - Last Filed: 09/09/20 13:47> Additional Instructions: X-rays did not show any broken bones The fingers are moving very well so injury is a bruise to the fingers and they should get better in a few days If in a week it is not better and there are any problems who could follow with orthopedist <TRESSA Hernandez - Last Filed: 09/09/20 13:47> Prescriptions: No Action miconazole nitrate 1,200-2 mg-% kit 1 supp vaginal BEDTIME Qty: 1 RF: 0 L norgest/e.estradiol-e.estrad [[place]] 0.15 mg-30 mcg (84)/10 mcg (7) tablets,dose pack,3 month 1 tab PO DAILY 90 Days Qty: 90 RF: 0 <TRESSA Hernandez - Last Filed: 09/09/20 13:47> Referrals: Arthur Alvarenga MD [Physician] - 2 days <TRESSA Hernandez - Last Filed: 09/09/20 13:47> Interventions: ED Discharge Assessment Last Done: 09/04/20 16:28 <TRESSA Hernandez - Last Filed: 09/09/20 13:47> Discharge Date/Time: 09/04/20 16:28 <TRESSA Hernandez - Last Filed: 09/09/20 13:47>
== END 2020-09-04 16:28 | disposition home or self-care (01) ==
PROVIDERS: Emergency Provider Emergency Medicine
DX: S60.021A Contusion of right index finger without damage to nail, initial encounter (principal); S60.031A Contusion of right middle finger without damage to nail, initial encounter; W23.1XXA Caught, crushed, jammed, or pinched between stationary objects, initial encounter; Y93.89 Activity, other specified; F12.90 Cannabis use, unspecified, uncomplicated; F17.290 Nicotine dependence, other tobacco product, uncomplicated; Y92.810 Car as the place of occurrence of the external cause; Y99.9 Unspecified external cause status
CPT/HCPCS: 73130; 99283

== ENCOUNTER 2020-10-31 16:57 | Emergency (ER) | payer OTHER, SELFPAY ==
[2020-10-31 17:17] VITALS: BP 119/69; PULSE 75; RESP 16; TEMP 36.4; O2SAT 95; BMI 21.9
[2020-10-31 18:29] LABS: Basophils Absolute Auto 0.1 X10*3/uL (0.0-0.2); Basophils Percent Auto 0.7 % (0-2); Eosinophils Absolute Auto 0.2 X10*3/uL (0.0-0.4); Eosinophils Percent Auto 1.9 % (0-4); Hematocrit 44.4 % (37-47); Hemoglobin 15.3 g/dl (12.0-16.0); Imm Gran Abs Auto 0.03 X10*3/uL (0.00-0.03); Imm Gran Pct Auto 0.3 % (0.0-0.4); Lymphocytes Absolute Auto 1.8 X10*3/uL (1.2-4.9); Lymphocytes Percent Auto 17.1 % (20-40); MANUAL DIFF FLAG NO; Mean Corpuscular HGB Conc 34.5 g/dl (31.0-35.0); Mean Corpuscular Hemoglobin 32.8 pg (27.0-33.0); Mean Corpuscular Volume 95.1 fL (80-98); Mean Platelet Volume 8.2 fL (9.4-12.3); Monocytes Absolute Auto 0.8 X10*3/uL (0.1-1.2); Monocytes Percent Auto 7.2 % (2-11); Neutrophils Absolute Auto 7.9 X10*3/uL (2.0-8.3); Neutrophils Percent Auto 72.8 % (45-73); Platelet Count 316 X10*3/uL (160-400); Red Blood Count 4.67 X10*6/uL (4.20-5.50); White Blood Count 10.8 X10*3/uL (4.8-10.8)
[2020-10-31 18:48] LABS: Anion Gap 12 (12-20); Blood Urea Nitrogen 9 mg/dL (9-16); Calcium 9.8 mg/dL (8.4-10.2); Carbon Dioxide 26 mmol/L (22-29); Chloride 104 mmol/L (96-108); Creatinine Clr Calc Pharmacy 86.8; Estimated Glomerular Filt Rate > 60; Glucose Random 85 mg/dL (60-115); Potassium 4.3 mmol/L (3.3-5.1); Sodium 138 mmol/L (135-145)
[2020-10-31 19:30] VITALS: BP 114/59; PULSE 85; RESP 17; TEMP 36.9; O2SAT 100
--- NOTE | 2020-10-31 19:32 | PC.NURSE ---
Pt aaox4, resting on stretcher in NAD breathing with ease on RA. Pt reports garcia bright red blood in stool x 1 today. Pt denies lightheadedness, CP, SOB, abd pain, n/v/d, urinary sx, constipation. Pt states I really feel fine, I just need a work note. Stretcher low locked, rails raised, call andrade within reach. VSS.
[2020-10-31 20:14] VITALS: BP 115/60; PULSE 89; RESP 14; O2SAT 98
[2020-10-31 20:42] LABS: OBS Int Ctl Valid YES; OBS1 POSITIVE (NEGATIVE)
--- NOTE | 2020-10-31 20:58 | ED_ITS ---
HPI - General Adult General Chief complaint: GI Bleed Stated complaint: rectal bleeding Time Seen by Provider: 10/31/20 19:47 Source: patient Limitations: no limitations History of Present Illness HPI narrative: Patient presents to ED for 1 episode of blood in the stool. Patient admits to hemorrhoids. Patient denies any abdominal pain, chest pain, dizziness, shortness of breath. Patient states she was using the bathroom and was straining and there was bright red blood in the stool. Patient has not had any episodes ever since . Related Data Previous Rx's Medication Instructions Recorded miconazole nitrate 1 supp VAGINAL BEDTIME #1 ea 05/05/20 L norgest/E estradiol-E estrad 1 tab PO DAILY 90 Days #90 ea 05/10/20 0.15 mg-30 mcg (84)/10 mcg(7) tabs,3mos docusate sodium [Colace] 100 mg PO BID #20 cap 10/31/20 hydrocortisone acetate [Anusol-HC] 25 mg MO BID #12 ea 10/31/20 Allergies Allergy/AdvReac Type Severity Reaction Status Date / Time No Known Allergies Allergy Verified 10/31/20 19:29 Review of Systems Review of Systems: Yes all other systems are reviewed and are negative Constitutional: Constitutional: Reports as per HPI and Reports no additional constitutional complaints Eyes: Eyes: Reports as per HPI and Reports no additional eye complaints ENT: Reports system reviewed and no additional complaints, except as documented and Reports as per HPI Cardiovascular: Cardiovascular: Reports as per HPI and Reports no additional cardiovascular complaints Respiratory: Respiratory: Reports as per HPI and Reports no additional respiratory complaints Gastrointestinal: Gastrointestinal: Reports as per HPI, Reports no additional gastrointestinal complaints, Denies abdominal pain and Reports hematochezia (One episode) Genitourinary: Genitourinary: Reports no additional female genitourinary comp laints and Reports as per HPI Musculoskeletal: Musculoskeletal: Reports no additional musculoskeletal complaints and Reports as per HPI Neurologic: Reports system reviewed and no additional complaints, except as documented and Reports as per HPI Psychiatric: Psychiatric: Reports no additional psychiatric complaints and Reports as per HPI [facility] Past Medical History Medical History (Updated 11/01/20 @ 00:00 by Basilio Rodriguez) Cocaine use H/O: substance abuse No known health problems Pelvic inflammation in female TOA (tubo-ovarian abscess) Social History Social History Household Members: None Housing: Apartment Do you presently have visiting nurse or other home services: No Alcohol intake: never Smoking Status: Current every day smoker Tobacco Type: E-Cigarette Substance Use Type: Marijuana Advance Directives: No Advance Directives Information Provided: Yes Patient : No service: No Current occupational status: employed Sexual orientation: Straight/Heterosexual Gender identity: female Physical Exam Vital Signs: Vital Signs: Last Vital Signs Temp 98.4 F 10/31/20 19:30 Pulse 89 10/31/20 20:14 Resp 14 10/31/20 20:14 BP 115/60 10/31/20 20:14 Pulse Ox 98 10/31/20 20:14 Body Mass Index 21.9 Const: General: cooperative, healthy appearing, comfortable, no acute distress, well developed, alert and awake Orientation/consciousness: patient oriented x3 HENMT: Head: Yes normal to inspection, Yes No palpable skull fracture present, Yes normocephalic and Yes atraumatic Eyes: General: appearance normal, both eyes and all related structures Neck: Neck: Yes normal visual inspection, Yes full ROM, Yes no lymphadenopathy, Yes no meningeal signs, Yes trachea midline, Yes supple and No tender Chest: Chest palpation & inspection: normal inspection of the chest and normal palpation of entire chest wall Resp: Effort & Inspection: normal respiratory effort and able to speak in complete sentences Auscultation: clear to auscultation bilaterally Cardio: Jugular venous distension: no JVD Heart sounds: S1 normal heart sound present and S2 normal heart sound present GI: Other: Rectal exam: Stool is brown. Negative for ruth blood. Internal hemorrhoid Inspection: Yes normal to inspection and No abdominal wall ecchymosis Palpation (GI): Soft to palpation, not firm, nontender, no guarding and not rigid : General: No CVA tenderness and Yes no CVA tenderness Back/Spine/Pelvis: Back: no CVA tenderness, No CVA tenderness and No back tenderness Skin: General skin exam: no rashes or lesions noted and elasticity normal Neuro: General: patient oriented x3, no meningeal signs and CN's II-XI intact bilaterally Cranial nerves: Yes CN's II-XII intact bilaterally Extrem: General: Yes normal to inspection and Yes full ROM Psych: Appearance: grossly normal, well kempt and not disheveled Course Course Course Narrative: Will do labs and stool guaic. Reevaluation(s) Reevaluation #1: Vital signs stable. H&H is normal. Occult stool guaiac positive. Diagnosis internal hemorrhoids. I do Not suspect any GI bleed. Patient not having any abdominal pain. NOt suspecting colitis. Patient denies vomiting blood. Medical Decision Making MDM Narrative Medical decision making narrative: Hemorrhoid Lab Data Result diagrams: 10/31/20 18:23 10/31/20 18:23 Labs: Lab Results 10/31/20 10/31/20 10/31/20 Range/Units 18:23 18:23 20:33 WBC 10.8 (4.8-10.8) X10*3/uL RBC 4.67 (4.20-5.50) X10*6/uL Hgb 15.3 (12.0-16.0) g/dl Hct 44.4 (37-47) % MCV 95.1 (80-98) fL MCH 32.8 (27.0-33.0) pg MCHC 34.5 (31.0-35.0) g/dl RDW 12.0 (11.0-16.0) % Plt Count 316 (160-400) X10*3/uL MPV 8.2 L (9.4-12.3) fL Immature Gran % (Auto) 0.3 (0.0-0.4) % Neut % (Auto) 72.8 (45-73) % Lymph % (Auto) 17.1 L (20-40) % [place] % (Auto) 7.2 (2-11) % Eos % (Auto) 1.9 (0-4) % Baso % (Auto) 0.7 (0-2) % Lymph # (Auto) 1.8 (1.2-4.9) X10*3/uL [place] # (Auto) 0.8 (0.1-1.2) X10*3/uL Eos # (Auto) 0.2 (0.0-0.4) X10*3/uL Baso # (Auto) 0.1 (0.0-0.2) X10*3/uL Abs Immat Gran (auto) 0.03 (0.00-0.03) X10*3/uL Absolute Neuts (auto) 7.9 (2.0-8.3) X10*3/uL Absolute Nucleated RBC 0.000 (0.0-0.012) X10*3/uL Nucleated RBC % (auto) 0.0 (0.0-0.2) /100WBC Sodium 138 (135-145) mmol/L Potassium 4.3 D (3.3-5.1) mmol/L Chloride 104 (96-108) mmol/L Carbon Dioxide 26 (22-29) mmol/L Anion Gap 12 (12-20) BUN 9 (9-16) mg/dL Creatinine 0.87 (0.5-1.4) mg/dL Estim Creat Clear Calc 86.8 Estimated GFR > 60 Random Glucose 85 (60-115) mg/dL Calcium 9.8 (8.4-10.2) mg/dL Stool Occult Blood POSITIVE (NEGATIVE) Discharge Plan Discharge Clinical Impression: Hemorrhoids Patient Disposition: Home, Self-Care Instructions: Hemorrhoids (ED), Rectal Bleeding (ED) Additional Instructions: Return to ED for abdominal pain, rectal pain, profuse rectal bleeding, weakness, dizziness, chest pain, shortness of breath, or any other concerning symptoms. Your blood work came back normal. You are not anemic. Prescriptions: New docusate sodium [Colace] 100 mg capsule 100 mg PO BID Qty: 20 RF: 0 hydrocortisone acetate [Anusol-HC] 25 mg suppository 25 mg MO BID Qty: 12 RF: 0 No Action miconazole nitrate 1,200-2 mg-% kit 1 supp vaginal BEDTIME Qty: 1 RF: 0 L norgest/e.estradiol-e.estrad [Seasonique] 0.15 mg-30 mcg (84)/10 mcg (7) tablets,dose pack,3 month 1 tab PO DAILY 90 Days Qty: 90 RF: 0 Referrals: Jillian Siddiqi MD [Primary Care Provider] - 2 days (Internal hemorrhoids. Rectal bleeding.) Stand Alone Forms: Work/School Release Interventions: ED Discharge Assessment Last Done: 10/31/20 21:21 Discharge Date/Time: 10/31/20 21:24 Print Language: [place] Island[place]
== END 2020-10-31 21:24 | disposition home or self-care (01) ==
PROVIDERS: Physician Assistant; Emergency Provider Internal Medicine; PCP Internal Medicine
DX: K64.8 Other hemorrhoids (principal); F12.90 Cannabis use, unspecified, uncomplicated; F19.10 Other psychoactive substance abuse, uncomplicated
CPT/HCPCS: 36415; 80048; 82272; 85025; 99283; 99284